=== PATIENT | female | born 1935 | race Caucasian/White ===

== ENCOUNTER 2017-01-23 07:39 | Emergency (ER) | payer MEDICARE ==
[2017-01-23] MEDS ORDERED: Aspirin Low Dose CHEW TAB* 81 MG PO ONE (08:54)
--- NOTE | 2017-01-23 09:20 | RAD ---
INDICATION: Cough, nocturnal dyspnea. COMPARISON: Comparison is made with a prior chest x-ray study from August 29, 2015. TECHNIQUE: A portable view of the chest was obtained. FINDINGS: There is a multilead transvenous pacemaker defibrillator present. The heart is within normal limits in size. The lungs are clear. No pleural effusion is seen. IMPRESSION: NO EVIDENCE FOR ACUTE DISEASE.
[2017-01-23] MEDS ORDERED: methylPREDNISolone SOD SUCC* 125 MG 2 ML VIAL IV ONE (09:52)
[2017-01-23] MEDS ORDERED: Albuterol/Ipratropium NEB.SOL* Albuterol 2.5 MG/Ipratropium 0.5 MG 3 ML INH ONE (09:52)
[2017-01-23 10:47] LABS: Hematocrit 39 % (35-47); Hemoglobin 13.2 g/dl (12.0-16.0); Mean Corpuscular HGB Conc 34 g/dl (31-36); Mean Corpuscular Hemoglobin 32 pg (27-31); Mean Corpuscular Volume 93 fL (80-97); Mean Platelet Volume 9 um3 (7.4-10.4); Red Blood Count 4.18 10^6/ul (4.0-5.4); Red Cell Distribution Width 13 % (10.5-15); White Blood Count 6.6 10^3/ul (3.5-10.8)
[2017-01-23 11:06] LABS: Calcium 9.9 mg/dL (8.6-10.3); EGFR African American 128.6 (>60); Globulin 3.2 g/dL (2-4); Potassium 3.9 mmol/L (3.5-5.0); Total Bilirubin 0.4 mg/dL (0.2-1.0); Total Protein 7.2 g/dL (6.4-8.9)
[2017-01-23 11:07] LABS: Troponin I 0.01 ng/mL (<0.04)
[2017-01-23 12:00] VITALS: BP 137/58
--- NOTE | 2017-02-02 17:56 | ED ---
axel Tee Timothy, scribed for Morris Calvert MD on 01/23/17 at 0829 . Respiratory - HPI Summary HPI Summary: Leeann Mcknight is an 81 yo female presenting to [facility] with cough for the past 2 weeks, worse at night and when she lays down. She also c/o fever on 01/21/17, at which point she saw her PCP who Dx her with bronchitis and gave her amoxicillin. She also has some nasal discharge. She is not in any current pain. She also has some cough-realted CP. 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 - History of Current Complaint Stated Complaint: COUGH, Time Seen by Provider: 01/23/17 09:49 Hx Obtained From: Patient Onset/Duration: Gradual Onset, Lasting Weeks, Still Present Timing: Constant Initial Severity: Moderate Current Severity: Moderate Pain Intensity: 0 Character: Cough (Nonproductive) Sputum Amount: None Aggravating Factor(s): Other - supine position Alleviating Factor(s): Upright Position Associated Signs and Symptoms: Fever, Chest Pain with Cough - Allergy/Home Medications Allergies/Adverse Reactions: Allergies Allergy/AdvReac Type Severity Reaction Status Date / Time Adhesive Tape Allergy Blisters Verified 01/23/17 07:44 Sulfa Drugs Allergy Hives Verified 01/23/17 07:44 PMH/Surg Hx/FS Hx/Imm Hx Endocrine/Hematology History: Reports: Hx Thyroid Disease - HX OF GRAVES- HYPOTHYROID Cardiovascular History: Reports: Hx Pacemaker/ICD, Other Cardiovascular Problems /Disorders - HX OF PAROXYSMAL VENTRICULAR TACHYCARDIA X 1; HX OF BRADYCARDIA Denies: Hx Congestive Heart Failure History: Reports: Other Problems/Disorders - HISTORY OF BLADDER INFECTIONS IN THE PAST- Musculoskeletal History: Reports: Hx Arthritis Denies: Hx Rheumatoid Arthritis, Hx Scoliosis Sensory History: Reports: Hx Cataracts - HX OF, Hx Contacts or Glasses - READING GLASSES, Hx Hearing Aid - BILATERAL Opthamlomology History: Reports: Hx Cataracts - HX OF, Hx Contacts or Glasses - READING GLASSES Neurological History: Reports: Hx Seizures - HX OF- WHILE ON ELAVIL- IN 1977 Denies: Hx Headaches, Other Neuro Impairments/Disorders - Surgical History Surgery Procedure, Year, and Place: [id number]. 1993-LEFT FOOT SURGERY-[facility]. 1994-CARPAL TUNNEL RELEASE BILATERAL. BREAST BIOPSIES. 5 YEARS- VARICOSE VEIN SURGERY- RIGHT LEG. 2006--ICD- [facility]. TONSILLECTOMY- AT AGE 20 Hx Anesthesia Reactions: No - Immunization History Date of Tetanus Vaccine: up to date per pt Infectious Disease History: No Infectious Disease History: Denies: Traveled Outside the [place] in Last 30 Days - Family History Known Family History: Positive: Cardiac Disease, Diabetes, Other - strokes, MS - Social History Alcohol Use: Occasionally Substance Use Type: Reports: None Smoking Status (MU): Former Smoker Review of Systems Positive: Fever Eyes: Negative Positive: Nasal Discharge. Negative: Sore Throat Positive: Chest Pain - secondary to cough Positive: Cough. Negative: Shortness Of Breath Gastrointestinal: Negative Negative: Abdominal Pain, Vomiting, Nausea Genitourinary: Negative Negative: dysuria, hematuria Musculoskeletal: Negative Negative: Edema - legs Skin: Negative Negative: Rash Neurological: Negative Psychological: Normal All Other Systems Reviewed And Are Negative: Yes Physical Exam - Summary Physical Exam Summary: Constitutional: Well-developed, Well-nourished, Alert. (-) Distressed Skin: Warm, Dry HENT: Normocephalic; Atraumatic Eyes: Conjunctiva normal Neck: Musculoskeletal ROM normal neck. (-) JVD, (-) Stridor, (-) Tracheal deviation Cardio: Rhythm regular, rate normal, Heart sounds normal; Intact distal pulses; The pedal pulses are 2+ and symmetric. Radial pulses are 2+ and symmetric. (-) Murmur Pulmonary/Chest wall: Effort normal. (-) Respiratory distress, (-) Wheezes, (-) Rales Abd: Soft, (-) Tenderness, (-) Distension, (-) Guarding, (-) Rebound Musculoskeletal: (-) Edema Lymph: (-) Cervical adenopathy Neuro: Alert, Oriented x3 Psych: Mood and affect Normal Triage Information Reviewed: Yes Vital Signs On Initial Exam: Initial Vitals Temp Pulse Resp BP Pulse Ox 97.9 F 65 20 123/57 99 01/23/17 07:44 01/23/17 07:44 01/23/17 07:44 01/23/17 07:44 01/23/17 07:44 Vital Signs Reviewed: Yes Diagnostics - Vital Signs Vital Signs Temp Pulse Resp BP Pulse Ox 01/23/17 07:44 97.9 F 65 20 123/57 99 - Laboratory Result Diagrams: 01/23/17 10:30 01/23/17 10:30 Lab Statement: Any lab studies that have been ordered have been reviewed, and results considered in the medical decision making process. - Radiology CXR Xray Interpretation: No Acute Changes - IMPRESSION: NO EVIDENCE FOR ACUTE DISEASE. Radiology Interpretation Completed By: Radiologist - EKG 0900 Cardiac Rate: NL - 65 BPM EKG Interpretation: Atrial-paced rhythm at 65 BPM. No indication for STEMI. Re-Evaluation - Re-Evaluation First Eval Re-Evaluation Time: 11:21 Change: Improved Comment: Informed Pt of results of lab work and imaging studies. Disposition - Course Assessment/Plan: Leeann Mcknight is an 81 yo female presenting to [facility] with cough for the past two weeks, and a Dx of bronchitis from her PCP. After negative CXR, normal EKG, and clinical examination and review of her lab work, she will be discharged home with bronchitis and appropriate instructions. - Diagnoses Provider Diagnoses: Bronchitis Discharge - Discharge Plan Condition: Stable Disposition: HOME Patient Education Materials: Acute Bronchitis (ED) Referrals: Suman Kong MD [Primary Care Provider] - 2 Days Additional Instructions: Please follow up with your primary care physician regarding your visit to the emergency department. Return to the emergency department with any new or recurring symptoms. The documentation as recorded by the axel de Timothy accurately reflects the service I personally performed and the decisions made by me, Morris Calvert MD.
== END 2017-01-23 11:30 | disposition home or self-care (01) ==
LOC: ED 07:39
DX: J40 Bronchitis, not specified as acute or chronic (principal); R07.9 Chest pain, unspecified; R50.9 Fever, unspecified; R05 Cough
CPT/HCPCS: 36415; 71010; 80053; 83605; 83880; 84484; 85025; 87040; 87502; 93005; 94640; 96374; 99283; A9270-GY; J2930

== ENCOUNTER 2017-09-16 01:19 | Emergency (ER) | payer MEDICARE ==
[2017-09-16 02:05] LABS: Hematocrit 39 % (35-47); Hemoglobin 13.2 g/dl (12.0-16.0); Mean Corpuscular HGB Conc 34 g/dl (31-36); Mean Corpuscular Hemoglobin 33 pg (27-31); Mean Corpuscular Volume 96 fL (80-97); Mean Platelet Volume 9 um3 (7.4-10.4); Red Blood Count 4.05 10^6/ul (4.0-5.4); Red Cell Distribution Width 13 % (10.5-15); White Blood Count 5.8 10^3/ul (3.5-10.8)
[2017-09-16 02:12] LABS: BUN/Creatinine Ratio 23.3 (8-20); Calcium 9.4 mg/dL (8.6-10.3); EGFR African American 98.4 (>60); EGFR Non-African American 76.5 (>60); Globulin 2.4 g/dL (2-4); Potassium 3.9 mmol/L (3.5-5.0); Total Bilirubin 0.3 mg/dL (0.2-1.0); Total Protein 6.4 g/dL (6.4-8.9)
[2017-09-16 02:26] LABS: TSH (Thyroid Stimulating Horm) 21.03 mcIU/mL (0.34-5.60)
[2017-09-16 05:37] LABS: Urine Bilirubin Negative (Negative); Urine Glucose Negative (Negative); Urine Nitrite Negative (Negative)
--- NOTE | 2017-09-16 06:23 | ED ---
Justin Tee Rebecca, scribed for Rodrigo London on 09/16/17 at 0130 . Complex/Multi-Sys Presentation - HPI Summary HPI Summary: Pt is an 82 y/o F who presents to ED c/o L shoulder and upper arm pain with WAY and nausea. Sx have been present for multiple days, worsening upon going to bed. Associated pain is currently moderate, ranked 7/10. Additionally c/o palpitations characterized as fluttering and SOB. Denies CP. PSHx pacemaker implantation for bradycardia and arrhythmia. - History Of Current Complaint Chief Complaint: EDChestPainROMI Time Seen by Provider: 09/16/17 01:20 Hx Obtained From: Patient Onset/Duration: Lasting Days, Still Present Severity Currently: Moderate - 7/10 Location: Pain At: - Left shoulder and upper arm Aggravating Factor(s): Nothing Alleviating Factor(s): Nothing Associated Signs And Symptoms: Positive: Headache, SOB, Palpitations, Nausea. Negative: Chest Pain - Allergies/Home Medications Allergies/Adverse Reactions: Allergies Allergy/AdvReac Type Severity Reaction Status Date / Time Adhesive Tape Allergy Blisters Verified 01/23/17 07:44 Sulfa Drugs Allergy Hives Verified 01/23/17 07:44 PMH/Surg Hx/FS Hx/Imm Hx Endocrine/Hematology History: Reports: Hx Thyroid Disease - HX OF GRAVES- HYPOTHYROID Cardiovascular History: Reports: Hx Pacemaker/ICD, Other Cardiovascular Problems /Disorders - HX OF PAROXYSMAL VENTRICULAR TACHYCARDIA X 1; HX OF BRADYCARDIA Denies: Hx Congestive Heart Failure History: Reports: Other Problems/Disorders - HISTORY OF BLADDER INFECTIONS IN THE PAST- Musculoskeletal History: Reports: Hx Arthritis Denies: Hx Rheumatoid Arthritis, Hx Scoliosis Sensory History: Reports: Hx Cataracts - HX OF, Hx Contacts or Glasses - READING GLASSES, Hx Hearing Aid - BILATERAL Opthamlomology History: Reports: Hx Cataracts - HX OF, Hx Contacts or Glasses - READING GLASSES Neurological History: Reports: Hx Seizures - HX OF- WHILE ON ELAVIL- IN 1977 Denies: Hx Headaches, Other Neuro Impairments/Disorders - Cancer History Hx Chemotherapy: No Hx Radiation Therapy: No - Surgical History Surgery Procedure, Year, and Place: [id number]. 1993-LEFT FOOT SURGERY-[facility]. 1994-CARPAL TUNNEL RELEASE BILATERAL. BREAST BIOPSIES. 5 YEARS- VARICOSE VEIN SURGERY- RIGHT LEG. 2006--ICD- [facility]. TONSILLECTOMY- AT AGE 20 Hx Anesthesia Reactions: No - Immunization History Date of Tetanus Vaccine: up to date per pt Infectious Disease History: No Infectious Disease History: Denies: Traveled Outside the [place] in Last 30 Days - Family History Known Family History: Positive: Cardiac Disease, Diabetes, Other - strokes, MS - Social History Alcohol Use: Occasionally Substance Use Type: Reports: None Smoking Status (MU): Former Smoker Review of Systems Positive: Palpitations. Negative: Chest Pain Positive: Shortness Of Breath Positive: Nausea Positive: Other - L shoulder and upper arm pain Positive: Headache All Other Systems Reviewed And Are Negative: Yes Physical Exam - Summary Physical Exam Summary: Appearance: Well appearing, no pain distress Skin: warm, dry, reflects adequate perfusion Head/face: normal Eyes: EOMI, FILI ENT: normal Neck: supple, nontender Respiratory: CTA, breath sounds present Cardiovascular: RRR, pulses symmetrical, pacemaker in place Abdomen: nontender, soft Bowel: present Musculoskeletal: normal, strength/ROM intact Neuro: normal, sensory motor intact, A&Ox3 Triage Information Reviewed: Yes Vital Signs On Initial Exam: Initial Vitals Temp Pulse Resp BP Pulse Ox 97.1 F 65 18 138/61 97 09/16/17 01:20 09/16/17 01:20 09/16/17 01:20 09/16/17 01:20 09/16/17 01:20 Vital Signs Reviewed: Yes Diagnostics - Vital Signs Vital Signs Temp Pulse Resp BP Pulse Ox 09/16/17 01:20 97.1 F 65 18 138/61 97 - Laboratory Lab Results: Lab Results 09/16/17 09/16/17 09/16/17 Range/Units 01:45 01:45 01:45 WBC 5.8 (3.5-10.8) 10^3/ul RBC 4.05 (4.0-5.4) 10^6/ul Hgb 13.2 (12.0-16.0) g/dl Hct 39 (35-47) % MCV 96 (80-97) fL MCH 33 H (27-31) pg MCHC 34 (31-36) g/dl RDW 13 (10.5-15) % Plt Count 205 (150-450) 10^3/ul MPV 9 (7.4-10.4) um3 Neut % (Auto) 43.4 (38-83) % Lymph % (Auto) 37.8 (25-47) % Tyrrell % (Auto) 11.3 H (1-9) % Eos % (Auto) 6.0 (0-6) % Baso % (Auto) 1.5 (0-2) % Absolute Neuts (auto) 2.5 (1.5-7.7) 10^3/ul Absolute Lymphs (auto) 2.2 (1.0-4.8) 10^3/ul Absolute Monos (auto) 0.7 (0-0.8) 10^3/ul Absolute Eos (auto) 0.3 (0-0.6) 10^3/ul Absolute Basos (auto) 0.1 (0-0.2) 10^3/ul Absolute Nucleated RBC 0 10^3/ul Nucleated RBC % 0.1 INR (Anticoag Therapy) 0.75 L (0.89-1.11) APTT 18.2 L (26.0-36.3) seconds Sodium (133-145) mmol/L Potassium (3.5-5.0) mmol/L Chloride (101-111) mmol/L Carbon Dioxide (22-32) mmol/L Anion Gap (2-11) mmol/L BUN (6-24) mg/dL Creatinine (0.51-0.95) mg/dL Est GFR ( Amer) (>60) Est GFR (Non-Af Amer) (>60) BUN/Creatinine Ratio (8-20) Glucose (70-100) mg/dL Calcium (8.6-10.3) mg/dL Magnesium (1.9-2.7) mg/dL Total Bilirubin (0.2-1.0) mg/dL AST (13-39) U/L ALT (7-52) U/L Alkaline Phosphatase (34-104) U/L Troponin I (<0.04) ng/mL B-Natriuretic Peptide 103 H ( - 100) pg/mL Total Protein (6.4-8.9) g/dL Albumin (3.2-5.2) g/dL Globulin (2-4) g/dL Albumin/Globulin Ratio (1-3) TSH (0.34-5.60) mcIU/mL Urine Color Urine Appearance Urine pH (5-9) Ur Specific [place] (1.010-1.030) Urine Protein (Negative) Urine Ketones (Negative) Urine Blood (Negative) Urine Nitrate (Negative) Urine Bilirubin (Negative) Urine Urobilinogen (Negative) Ur Leukocyte Esterase (Negative) Urine Glucose (Negative) 09/16/17 09/16/17 09/16/17 Range/Units 01:45 05:12 05:25 WBC (3.5-10.8) 10^3/ul RBC (4.0-5.4) 10^6/ul Hgb (12.0-16.0) g/dl Hct (35-47) % MCV (80-97) fL MCH (27-31) pg MCHC (31-36) g/dl RDW (10.5-15) % Plt Count (150-450) 10^3/ul MPV (7.4-10.4) um3 Neut % (Auto) (38-83) % Lymph % (Auto) (25-47) % Tyrrell % (Auto) (1-9) % Eos % (Auto) (0-6) % Baso % (Auto) (0-2) % Absolute Neuts (auto) (1.5-7.7) 10^3/ul Absolute Lymphs (auto) (1.0-4.8) 10^3/ul Absolute Monos (auto) (0-0.8) 10^3/ul Absolute Eos (auto) (0-0.6) 10^3/ul Absolute Basos (auto) (0-0.2) 10^3/ul Absolute Nucleated RBC 10^3/ul Nucleated RBC % INR (Anticoag Therapy) (0.89-1.11) APTT (26.0-36.3) seconds Sodium 136 (133-145) mmol/L Potassium 3.9 (3.5-5.0) mmol/L Chloride 105 (101-111) mmol/L Carbon Dioxide 25 (22-32) mmol/L Anion Gap 6 (2-11) mmol/L BUN 17 (6-24) mg/dL Creatinine 0.73 (0.51-0.95) mg/dL Est GFR ( Amer) 98.4 (>60) Est GFR (Non-Af Amer) 76.5 (>60) BUN/Creatinine Ratio 23.3 H (8-20) Glucose 101 H (70-100) mg/dL Calcium 9.4 (8.6-10.3) mg/dL Magnesium 2.0 (1.9-2.7) mg/dL Total Bilirubin 0.30 (0.2-1.0) mg/dL AST 24 (13-39) U/L ALT 16 (7-52) U/L Alkaline Phosphatase 58 (34-104) U/L Troponin I 0.00 0.00 (<0.04) ng/mL B-Natriuretic Peptide ( - 100) pg/mL Total Protein 6.4 (6.4-8.9) g/dL Albumin 4.0 (3.2-5.2) g/dL Globulin 2.4 (2-4) g/dL Albumin/Globulin Ratio 1.7 (1-3) TSH 21.03 H (0.34-5.60) mcIU/mL Urine Color Straw Urine Appearance Clear Urine pH 5.0 (5-9) Ur Specific [place] 1.004 L (1.010-1.030) Urine Protein Negative (Negative) Urine Ketones Negative (Negative) Urine Blood Negative (Negative) Urine Nitrate Negative (Negative) Urine Bilirubin Negative (Negative) Urine Urobilinogen Negative (Negative) Ur Leukocyte Esterase Negative (Negative) Urine Glucose Negative (Negative) Result Diagrams: 09/16/17 01:45 09/16/17 01:45 Lab Statement: Any lab studies that have been ordered have been reviewed, and results considered in the medical decision making process. - Radiology Shoulder XR Xray Interpretation: No Acute Changes Radiology Interpretation Completed By: ED Physician CXR Xray Interpretation: No Acute Changes Radiology Interpretation Completed By: ED Physician - EKG 0140 Cardiac Rate: NL - 65 bpm EKG Rhythm: Sinus Rhythm EKG Interpretation: No acute changes Complex Multi-Symp Course/Dx Assessment/Plan: Pt is an 82 y/o F who presents to ED c/o L shoulder and upper arm pain with WAY and nausea. Sx have been present for multiple days, worsening upon going to bed. Associated pain is currently moderate, ranked 7/10. Additionally c/o palpitations characterized as fluttering and SOB. Denies CP. PSHx pacemaker implantation for bradycardia and arrhythmia. CXR and Abd XR reveal no acute findings. EKG is sinus rhythm with no acute changes. UA negative for UTI. Initial yna drepeta troponin are 0.00. Pt will be D/C to home with Dx of palpitations and shoulder pain. She understands and agrees. Allergies noted. - Diagnoses Differential Diagnoses/HQI/PQRI: Cardiac Ischemia, Other - palpitations, lf shoulder pain Provider Diagnoses: Palpitations, Left shoulder pain Discharge - Discharge Plan Condition: Stable Disposition: HOME Patient Education Materials: Palpitations (ED), Shoulder Pain (ED) Referrals: Suman Kong MD [Primary Care Provider] - 3 Days The documentation as recorded by the Justin de Rebecca accurately reflects the service I personally performed and the decisions made by , Rodrigo London.
[2017-09-16 06:30] VITALS: BP 116/72
--- NOTE | 2017-09-16 08:00 | RAD ---
HISTORY: Chest pain COMPARISONS: August 29, 2015 VIEWS: 3: frontal dual-energy view of the chest FINDINGS: CARDIOMEDIASTINAL SILHOUETTE: The cardiomediastinal silhouette is normal. MAMIE: The mamie are normal. PLEURA: The costophrenic angles are sharp. No pleural abnormalities are noted. LUNG PARENCHYMA: There is minimal linear opacification of the left lung base ABDOMEN: The upper abdomen is clear. There is no subphrenic gas. BONES AND SOFT TISSUES: Degenerative changes are noted OTHER: A left-sided AICD pacemaker is noted IMPRESSION: MINIMAL LINEAR ATELECTASIS VERSUS PLEUROPARENCHYMAL SCARRING OF THE LEFT LUNG BASE
--- NOTE | 2017-09-16 08:02 | RAD ---
INDICATION: Left shoulder pain COMPARISON: None. TECHNIQUE: 4 views of the left shoulder were obtained. FINDINGS: The adequately corticated bones are in normal alignment. Degenerative changes of the left shoulder include mild sclerotic change of the articulating surfaces and osteophyte formation along the inferior margin the glenohumeral joint. There is faint density overlying the superior lateral margin of the humeral head at the expected insertion site of the supraspinatus tendon. No fracture, dislocation or focal bony abnormality is seen. IMPRESSION: MILD DEGENERATIVE CHANGES OF THE LEFT SHOULDER INCLUDING POTENTIAL CALCIFIC TENDINITIS. If the patient's symptoms persist, follow-up imaging is recommended.
== END 2017-09-16 06:30 | disposition home or self-care (01) ==
LOC: ED 01:19
DX: R00.2 Palpitations (principal); M25.512 Pain in left shoulder; R51 Headache; R06.02 Shortness of breath; R11.0 Nausea; Z87.891 Personal history of nicotine dependence
CPT/HCPCS: 36415; 71010; 80053; 81003; 83735; 83880; 84443; 84484; 85025; 85610; 85730; 93005; 99283

== ENCOUNTER 2019-01-05 23:46 | Emergency (ER) | payer MEDICARE ==
[2019-01-06 02:04] LABS: Hematocrit 40 % (35-47); Hemoglobin 13.1 g/dl (12.0-16.0); Mean Corpuscular HGB Conc 33 g/dl (31-36); Mean Corpuscular Hemoglobin 32 pg (27-31); Mean Corpuscular Volume 96 fL (80-97); Platelet Count 234 10^3/ul (150-450); Red Blood Count 4.12 10^6/ul (4.00-5.40); Red Cell Distribution Width 13 % (10.5-15); White Blood Count 5.9 10^3/ul (3.5-10.8)
[2019-01-06 02:11] LABS: Activated Partial Thrombo Time 31.3 seconds (26.0-36.3); INR 0.83 (0.77-1.02)
[2019-01-06 02:13] LABS: ABS Basophils 0 10^3/ul (0-0.2); ABS Eosinophils 0.3 10^3/ul (0-0.6); ABS Monocytes 0.5 10^3/ul (0-0.8); ABS Neutrophils 3.1 10^3/ul (1.5-7.7); ABS Nucleated RBC 0 10^3/ul; Lymphocyte % 33.2 %; Nucleated Red Blood Cells % 0.1
[2019-01-06 02:20] LABS: Albumin 4.2 g/dL (3.2-5.2); Albumin/Globulin Ratio 1.7 (1-3); BUN/Creatinine Ratio 31.9 (8-20); Calcium 10.5 mg/dL (8.6-10.3); EGFR African American 93.8 (>60); EGFR Non-African American 77.5 (>60); Globulin 2.5 g/dL (2-4); Magnesium 2.2 mg/dL (1.9-2.7); Potassium 4.4 mmol/L (3.5-5.0); Total Bilirubin 0.4 mg/dL (0.2-1.0); Total Protein 6.7 g/dL (6.4-8.9)
[2019-01-06] MEDS ORDERED: Iohexol 350* (CONTRAST) 500 ML MDV IV ONE (02:35)
[2019-01-06] MEDS ORDERED: Aspirin TAB* 325 MG PO ONE (05:09)
--- NOTE | 2019-01-06 05:14 | ED ---
Neurological HPI - HPI Summary HPI Summary: Patient is a 83 y/o F presenting to ED with complaints of a ten minute episode of double vision at 2200 on 01/06/19. She states that her vision was fine if she covered one eye. Patient was watching TV when Sx onset. She reports two previous similar episodes 5-6 weeks ago that only lasted seconds. Patient reports Sx have resolved at this time. She denies HAs, impaired speech, numbness and weakness. Patient does note some dizziness yesterday. She is on levothyroxine, not on ASA currently. PMHx of arrhythmia, pacemaker sine 2006. On triage, pain is denied, nothing is noted to aggravate/alleviate Sx. Home medications and allergies are reviewed. - History of Current Complaint Chief Complaint: EDGeneral Stated Complaint: VISION ISSUES Time Seen by Provider: 01/06/19 00:34 Hx Obtained From: Patient Onset/Duration: Started hours ago - onset 2200, Resolved Timing: Intermittent Episodes Lasting: - 10 minutes Current Severity: None - pain denied Pain Intensity: 0 Pain Scale Used: 0-10 Numeric - 0/10 Character: Dizzy, Visual Changes - double vision Aggravating: Nothing Alleviating: Nothing Associated Signs and Symptoms: Positive: Visual Changes, Dizziness. Negative: Headache, Weakness, Impaired Speech, Numbness - Allergy/Home Medications Allergies/Adverse Reactions: Allergies Allergy/AdvReac Type Severity Reaction Status Date / Time Adhesive Tape Allergy Blisters Verified 01/05/19 23:53 MS Sulfa Drugs [Sulfa Drugs] Allergy Hives Verified 01/05/19 23:53 PMH/Surg Hx/FS Hx/Imm Hx Endocrine/Hematology History: Reports: Hx Thyroid Disease - HX OF GRAVES- HYPOTHYROID Denies: Hx Diabetes Cardiovascular History: Reports: Hx Pacemaker/ICD, Other Cardiovascular Problems /Disorders - HX OF PAROXYSMAL VENTRICULAR TACHYCARDIA X 1; HX OF BRADYCARDIA Denies: Hx Congestive Heart Failure, Hx Hypertension History: Reports: Other Problems/Disorders - HISTORY OF BLADDER INFECTIONS IN THE PAST- Denies: Hx Renal Disease Musculoskeletal History: Reports: Hx Arthritis Denies: Hx Rheumatoid Arthritis, Hx Scoliosis Sensory History: Reports: Hx Cataracts - HX OF, Hx Contacts or Glasses - READING GLASSES, Hx Hearing Aid - BILATERAL Opthamlomology History: Reports: Hx Cataracts - HX OF, Hx Contacts or Glasses - READING GLASSES Neurological History: Reports: Hx Seizures - HX OF- WHILE ON [facility]VIL- IN 1977 Denies: Hx Headaches, Other Neuro Impairments/Disorders - Cancer History Hx Chemotherapy: No Hx Radiation Therapy: No - Surgical History Surgery Procedure, Year, and Place: [id number]. 1993-LEFT FOOT SURGERY-[facility]. 1994-CARPAL TUNNEL RELEASE BILATERAL. BREAST BIOPSIES. 5 YEARS- VARICOSE VEIN SURGERY- RIGHT LEG. 2006--ICD- [facility]. TONSILLECTOMY- AT AGE 20 Hx Anesthesia Reactions: No - Immunization History Date of Tetanus Vaccine: up to date per pt Infectious Disease History: No Infectious Disease History: Denies: Traveled Outside the [place] in Last 30 Days - Family History Known Family History: Positive: Cardiac Disease, Diabetes, Other - strokes, MS - Social History Alcohol Use: Occasionally Alcohol Amount: wine Substance Use Type: Reports: None Smoking Status (MU): Former Smoker Review of Systems Eyes: Other - POSITIVE - DOUBLE VISION, SINCE RESOLVED Neurological: Other - POSITIVE - DIZZINESS, SINCE RESOLVED Negative: Headache, Weakness, Numbness, Slurred Speech All Other Systems Reviewed And Are Negative: Yes Physical Exam - Summary Physical Exam Summary: VITAL SIGNS: Reviewed. GENERAL: Patient is a well-developed and nourished female who is lying comfortable in the stretcher. Patient is not in any acute respiratory distress. HEAD AND FACE: No signs of trauma. No ecchymosis, hematomas or skull depressions. No sinus tenderness. EYES: PERRLA, EOMI x 2, No injected conjunctiva, no nystagmus. EARS: Hearing grossly intact. Ear canals and tympanic membranes are within normal limits. MOUTH: Oropharynx within normal limits. NECK: Supple, trachea is midline, no adenopathy, no JVD, no carotid bruit, no c- spine tenderness, neck with full ROM. CHEST: Symmetric, no tenderness at palpation LUNGS: Clear to auscultation bilaterally. No wheezing or crackles. CVS: Regular rate and rhythm, S1 and S2 present, no murmurs or gallops appreciated. ABDOMEN: Soft, non-tender. No signs of distention. No rebound no guarding, and no masses palpated. Bowel sounds are normal. EXTREMITIES: FROM in all major joints, no edema, no cyanosis or clubbing. NEURO: Alert and oriented x 3. No acute neurological deficits. Speech is normal and follows commands. GCS 15. SKIN: Dry and warm Triage Information Reviewed: Yes Vital Signs On Initial Exam: Initial Vitals Temp Pulse Resp BP Pulse Ox 97.6 F 66 16 181/73 96 01/05/19 23:49 01/05/19 23:49 01/05/19 23:49 01/05/19 23:49 01/05/19 23:49 Vital Signs Reviewed: Yes Diagnostics - Vital Signs Vital Signs Temp Pulse Resp BP Pulse Ox 01/06/19 03:46 65 174/73 97 01/06/19 03:00 65 97 01/06/19 02:17 69 154/49 94 01/06/19 02:00 68 95 01/06/19 01:47 65 162/73 96 01/06/19 01:16 66 150/78 96 01/06/19 01:00 65 94 01/06/19 00:47 66 144/66 96 01/06/19 00:17 70 143/115 97 01/05/19 23:49 97.6 F 66 16 181/73 96 - Laboratory Lab Results: Lab Results 01/06/19 01/06/19 01/06/19 Range/Units 01:54 01:54 01:54 WBC 5.9 (3.5-10.8) 10^3/ul RBC 4.12 (4.00-5.40) 10^6/ul Hgb 13.1 (12.0-16.0) g/dl Hct 40 (35-47) % MCV 96 (80-97) fL MCH 32 H (27-31) pg MCHC 33 (31-36) g/dl RDW 13 (10.5-15) % Plt Count 234 (150-450) 10^3/ul MPV 9.0 (7.4-10.4) fL Neut % (Auto) 52.1 % Lymph % (Auto) 33.2 % [place] % (Auto) 9.3 % Eos % (Auto) 5.0 % Baso % (Auto) 0.4 % Absolute Neuts (auto) 3.1 (1.5-7.7) 10^3/ul Absolute Lymphs (auto) 2.0 (1.0-4.8) 10^3/ul Absolute Monos (auto) 0.5 (0-0.8) 10^3/ul Absolute Eos (auto) 0.3 (0-0.6) 10^3/ul Absolute Basos (auto) 0 (0-0.2) 10^3/ul Absolute Nucleated RBC 0 10^3/ul Nucleated RBC % 0.1 INR (Anticoag Therapy) 0.83 (0.77-1.02) APTT 31.3 (26.0-36.3) seconds Sodium 138 (135-145) mmol/L Potassium 4.4 (3.5-5.0) mmol/L Chloride 105 (101-111) mmol/L Carbon Dioxide 28 (22-32) mmol/L Anion Gap 5 (2-11) mmol/L BUN 23 (6-24) mg/dL Creatinine 0.72 (0.51-0.95) mg/dL Est GFR ( Amer) 93.8 (>60) Est GFR (Non-Af Amer) 77.5 (>60) BUN/Creatinine Ratio 31.9 H (8-20) Glucose 97 (70-100) mg/dL Lactic Acid (0.5-2.0) mmol/L Calcium 10.5 H (8.6-10.3) mg/dL Magnesium 2.2 (1.9-2.7) mg/dL Total Bilirubin 0.40 (0.2-1.0) mg/dL AST 18 (13-39) U/L ALT 15 (7-52) U/L Alkaline Phosphatase 64 (34-104) U/L Troponin I 0.00 (<0.04) ng/mL Total Protein 6.7 (6.4-8.9) g/dL Albumin 4.2 (3.2-5.2) g/dL Globulin 2.5 (2-4) g/dL Albumin/Globulin Ratio 1.7 (1-3) 01/06/19 Range/Units 01:54 WBC (3.5-10.8) 10^3/ul RBC (4.00-5.40) 10^6/ul Hgb (12.0-16.0) g/dl Hct (35-47) % MCV (80-97) fL MCH (27-31) pg MCHC (31-36) g/dl RDW (10.5-15) % Plt Count (150-450) 10^3/ul MPV (7.4-10.4) fL Neut % (Auto) % Lymph % (Auto) % [place] % (Auto) % Eos % (Auto) % Baso % (Auto) % Absolute Neuts (auto) (1.5-7.7) 10^3/ul Absolute Lymphs (auto) (1.0-4.8) 10^3/ul Absolute Monos (auto) (0-0.8) 10^3/ul Absolute Eos (auto) (0-0.6) 10^3/ul Absolute Basos (auto) (0-0.2) 10^3/ul Absolute Nucleated RBC 10^3/ul Nucleated RBC % INR (Anticoag Therapy) (0.77-1.02) APTT (26.0-36.3) seconds Sodium (135-145) mmol/L Potassium (3.5-5.0) mmol/L Chloride (101-111) mmol/L Carbon Dioxide (22-32) mmol/L Anion Gap (2-11) mmol/L BUN (6-24) mg/dL Creatinine (0.51-0.95) mg/dL Est GFR ( Amer) (>60) Est GFR (Non-Af Amer) (>60) BUN/Creatinine Ratio (8-20) Glucose (70-100) mg/dL Lactic Acid 0.5 (0.5-2.0) mmol/L Calcium (8.6-10.3) mg/dL Magnesium (1.9-2.7) mg/dL Total Bilirubin (0.2-1.0) mg/dL AST (13-39) U/L ALT (7-52) U/L Alkaline Phosphatase (34-104) U/L Troponin I (<0.04) ng/mL Total Protein (6.4-8.9) g/dL Albumin (3.2-5.2) g/dL Globulin (2-4) g/dL Albumin/Globulin Ratio (1-3) Result Diagrams: 01/06/19 01:54 01/06/19 01:54 Lab Statement: Any lab studies that have been ordered have been reviewed, and results considered in the medical decision making process. - CT CTA HEAD/NECK CT Interpretation Completed By: Radiologist Summary of CT Findings: CTA HEAD IMPRESSION: No acute findings. THIS REPORT WAS REVIEWED BY ED PHYSICIAN. CTA NECK IMPRESSION: 1. No hemodynamically significant narrowing of the cervical carotid arteries. Both internal carotid arteries are tortuous with no hemodynamically significant. kinking. No evidence of a dissection. 2. The left vertebral artery shows focal areas of narrowing which in part is. related to severe degenerative changes of the facet joints. However no. occlusion is observed. This report was reviewed by ED physician. BRAIN CT Summary of CT Findings: BRAIN CT IMPRESSION: No acute findings. THIS REPORT WAS REVIEWED BY ED PHYSICIAN. - EKG 0222 Cardiac Rate: Other Rate - atrial paced rhythm with rate of 65 BPM Summary of EKG Findings: EKG showed atrial paced rhythm with rate of 65 BPM. Re-Evaluation - Re-Evaluation First Eval Re-Evaluation Time: 05:08 Comment: Patient states that she would like to go home, does not want admission. She states that she will follow up with PCP in the morning. At this time, patient remains asymptomatic. Course/Dx - Course Course Of Treatment: Patient is a 83 y/o F presenting to ED with complaints of a ten minute episode of double vision at 2200 on 01/06/19. She states that her vision was fine if she covered one eye. Patient was watching TV when Sx onset. She reports two previous similar episodes 5-6 weeks ago that only lasted seconds. Patient reports Sx have resolved at this time. She denies HAs, impaired speech, numbness and weakness. Patient does note some dizziness yesterday. She is on levothyroxine, not on ASA currently. PMHx of arrhythmia, pacemaker sine 2006. Physical exam is unremarkable. During ED course, patient was given 324 ASA mg PO. Labs showed MCH 32, BUN/creatinine ratio 31.9, calcium 10.5, lactic acid 0.5, trop 0. EKG showed atrial paced rhythm with rate of [address] IMPRESSION: No acute findings. CTA HEAD IMPRESSION: No acute findings. CTA NECK IMPRESSION: 1. No hemodynamically significant narrowing of the cervical carotid arteries. Both internal carotid arteries are tortuous with no hemodynamically significant. kinking. No evidence of a dissection. 2. The left vertebral artery shows focal areas of narrowing which in part is. related to severe degenerative changes of the facet joints. However no. occlusion is observed. Patient states that she would like to go home, does not want admission. She states that she will follow up with PCP in the morning. At this time, patient remains asymptomatic. Sx could be due to TIA, patient was advised to follow up with PCP and eye doctor, take full ASA daily. She is agreeable with this plan. - Diagnoses Provider Diagnoses: TIA (transient ischemic attack), Double vision Discharge - Sign-Out/Discharge Documenting (check all that apply): Patient Departure - discharge Patient Received Moderate/Deep Sedation with Procedure: No - NO PROCEDURES DONE - Discharge Plan Condition: Stable Disposition: HOME Patient Education Materials: Transient Ischemic Attack (ED), Diplopia (ED) Referrals: Roderick Peralta MD [Primary Care Provider] - 2 Days Uri Bui MD [Medical Doctor] - 2 Days Additional Instructions: RETURN TO EMERGENCY DEPARTMENT FOR ANY NEW OR WORSENING SYMPTOMS. FOLLOW UP WITH PRIMARY CARE PHYSICIAN AND EYE DOCTOR IN 1-2 DAYS. - Attestation Statements Document Initiated by Scribe: Yes Documenting Scribe: NITIN ROY Provider For Whom Scribe is Documenting (Include Credential): BRITTANY ALCANTAR MD Scribe Attestation: I, NITIN ROY , scribed for BRITTANY ALCANTAR MD on 01/06/19 at 0555. Status of Scribe Document: Ready
[2019-01-06] MEDS ORDERED: Aspirin 81 mg CHEW TAB* 81 MG TAB.CHEW ONE (05:16)
[2019-01-06] MEDS ORDERED: Aspirin 81 mg CHEW TAB* 81 MG TAB.CHEW PO ONE (05:20)
[2019-01-06 05:29] VITALS: BP 143/65
== END 2019-01-06 05:28 | disposition home or self-care (01) ==
LOC: ED 23:46
DX: G45.9 Transient cerebral ischemic attack, unspecified (principal); H53.2 Diplopia; R42 Dizziness and giddiness; Z88.2 Allergy status to sulfonamides; Z87.891 Personal history of nicotine dependence
CPT/HCPCS: 36415; 70450; 70496; 70498; 80053; 83605; 83735; 84484; 85025; 85610; 85730; 93005; 99283; A9270-GY; Q9967

== ENCOUNTER 2019-01-15 22:40 | Emergency (ER) | payer MEDICARE ==
--- NOTE | 2019-01-15 23:01 | ED ---
Dizziness - HPI Summary HPI Summary: This patient is a 83 year old female brought in by ambulance to [facility] with a chief complaint of vision problems, vertigo since approx. 2100 today. Patient states that she was sitting down watching TV when the symptoms occurred suddenly. Patient states that it wasnt quite double vision, but felt lights and lines in vision. Patient states that the episode lasted around 2 minutes and resolved, leaving her fatigued. Patient states that this has happened before , last Saturday, which presented itself as double vision. Patient was instructed to come to the ED if similar symptoms arise. Patient presents to the ED as she is experiencing chest tightness on top of the previous symptoms. The pain is rated 0/10 in severity. Symptoms aggravated by nothing. Symptoms alleviated by nothing. Patient additionally reports dizziness, lightheadedness, chest tightness. Patient denies headache, double vision, abd pain, nausea, vomiting. - History Of Current Complaint Stated Complaint: CHEST PAIN Time Seen by Provider: 01/15/19 22:51 Hx Obtained From: Patient Onset/Duration: Resolved, Suddenly Timing: Constant Severity Initially: Mild Severity Currently: None Character: Lightheaded, Dizzy Aggravating Factor(s): Nothing Alleviating Factor(s): Nothing Associated Signs And Symptoms: Positive: Negative - headache, double vision, abd pain, nausea, vomiting, Other: - dizziness, lightheadedness, chest tightness - Allergies/Home Medications Allergies/Adverse Reactions: Allergies Allergy/AdvReac Type Severity Reaction Status Date / Time Adhesive Tape Allergy Blisters Verified 01/05/19 23:53 MS Sulfa Drugs [Sulfa Drugs] Allergy Hives Verified 01/05/19 23:53 PMH/Surg Hx/FS Hx/Imm Hx Previously Healthy: No Endocrine/Hematology History: Reports: Hx Thyroid Disease - HX OF GRAVES- HYPOTHYROID Denies: Hx Diabetes Cardiovascular History: Reports: Hx Pacemaker/ICD, Other Cardiovascular Problems /Disorders - HX OF PAROXYSMAL VENTRICULAR TACHYCARDIA X 1; HX OF BRADYCARDIA Denies: Hx Congestive Heart Failure, Hx Hypertension History: Reports: Other Problems/Disorders - HISTORY OF BLADDER INFECTIONS IN THE PAST- Denies: Hx Renal Disease Musculoskeletal History: Reports: Hx Arthritis Denies: Hx Rheumatoid Arthritis, Hx Scoliosis Sensory History: Reports: Hx Cataracts - HX OF, Hx Contacts or Glasses - READING GLASSES, Hx Hearing Aid - BILATERAL Opthamlomology History: Reports: Hx Cataracts - HX OF, Hx Contacts or Glasses - READING GLASSES Neurological History: Reports: Hx Seizures - HX OF- WHILE ON [facility]- IN 1977 Denies: Hx Headaches, Other Neuro Impairments/Disorders - Cancer History Hx Chemotherapy: No Hx Radiation Therapy: No - Surgical History Surgery Procedure, Year, and Place: [id number]. 1993-LEFT FOOT SURGERY-[facility]. 1994-CARPAL TUNNEL RELEASE BILATERAL. BREAST BIOPSIES. 5 YEARS- VARICOSE VEIN SURGERY- RIGHT LEG. 2006--ICD- [facility]. TONSILLECTOMY- AT AGE 20 Hx Anesthesia Reactions: No - Immunization History Date of Tetanus Vaccine: up to date per pt - Family History Known Family History: Positive: Cardiac Disease, Diabetes, Other - strokes, MS - Social History Occupation: Retired Lives: Alone Alcohol Use: Occasionally Alcohol Amount: wine Hx Substance Use: No Substance Use Type: Reports: None Hx Tobacco Use: Yes Smoking Status (MU): Former Smoker Review of Systems Negative: Fever Positive: Other - lights and lines in vision Positive: Chest Pain - "chest tightness" Negative: Abdominal Pain, Vomiting, Nausea Neurological: Negative - double vision, Other - dizziness, lightheadedness Negative: Headache All Other Systems Reviewed And Are Negative: Yes Physical Exam - Summary Physical Exam Summary: Appearance: Well-appearing, Well-nourished, lying in bed comfortably Skin: Warm, dry, no obvious rash Eyes: sclera anicteric, no conjunctival pallor ENT: mucous membranes moist, pharynx appears normal Neck: Supple, nontender Respiratory: Clear to auscultation, no signs of respiratory distress Cardiovascular: Normal S1, S2. No murmurs. Normal distal pulses in tibial and radial bilaterally. Abdomen: Soft, nontender, normal active bowel sounds present Musculoskeletal: Normal, Strength/ROM Intact Neurological: A&Ox3, awake and alert, mentation is normal, speech is fluent and appropriate Psychiatric: affect is normal, does not appear anxious or depressed Triage Information Reviewed: Yes Vital Signs Reviewed: Yes Diagnostics - Laboratory Result Diagrams: 01/15/19 23:09 01/15/19 23:09 Lab Statement: Any lab studies that have been ordered have been reviewed, and results considered in the medical decision making process. - Radiology CXR Radiology Interpretation Completed By: ED Physician Summary of Radiographic Findings: No acute process. Pending official imaging report. 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 Dizzy Course/Dx - Course Course Of Treatment: This patient is a 83 year old female brought in by ambulance to [facility] with a chief complaint of vision problems, vertigo since approx. 2100 today. Patient states that she was sitting down watching TV when the symptoms occurred suddenly. Patient states that it wasnt quite double vision, but felt lights and lines in vision. Patient states that the episode lasted around 2 minutes and resolved, leaving her fatigued. Patient states that this has happened before, last Saturday, which presented itself as double vision. Patient was instructed to come to the ED if similar symptoms arise. Patient presents to the ED as she is experiencing chest tightness on top of the previous symptoms. The pain is rated 0/10 in severity. Symptoms aggravated by nothing. Symptoms alleviated by nothing. Patient additionally reports dizziness , lightheadedness, chest tightness. Patient denies headache, double vision, abd pain, nausea, vomiting. The physical exam was unremarkable. 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 CXR showed no acute process. Lab results obtained and are WNL. The patient will be discharged home. She is agreeable with this plan. - Diagnoses Provider Diagnoses: Chest pain Discharge - Sign-Out/Discharge Documenting (check all that apply): Patient Departure - DC Patient Received Moderate/Deep Sedation with Procedure: No - Discharge Plan Condition: Good Disposition: HOME Patient Education Materials: Chest Pain (ED) Referrals: Roderick Peralta MD [Primary Care Provider] - 1 Day Additional Instructions: Contact your doctor later today, as he will likely want to see you in the near future to see if you require further testing. - Billing Disposition and Condition Condition: GOOD Disposition: Home - Attestation Statements Document Initiated by Scribe: Yes Documenting Scribe: Slava Lira Provider For Whom Corona is Documenting (Include Credential): Brandon Mcnamara MD Scribe Attestation: Slava Tee, patibed for Brandon Mcnamara MD on 01/20/19 at 1850. Scribe Documentation Reviewed: Yes Provider Attestation: The documentation as recorded by the Slava de accurately reflects the service I personally performed and the decisions made by me, Brandon Mcnamara MD Status of Scribe Document: Viewed
[2019-01-15 23:24] LABS: ABS Basophils 0.1 10^3/ul (0-0.2); ABS Eosinophils 0.3 10^3/ul (0-0.6); ABS Lymphocytes 1.6 10^3/ul (1.0-4.8); ABS Monocytes 0.7 10^3/ul (0-0.8); ABS Neutrophils 6.1 10^3/ul (1.5-7.7); ABS Nucleated RBC 0 10^3/ul; Eosinophil % 3.5 %; Hematocrit 40 % (35-47); Hemoglobin 13.4 g/dl (12.0-16.0); Lymphocyte % 18.4 %; Mean Corpuscular HGB Conc 34 g/dl (31-36); Mean Corpuscular Hemoglobin 32 pg (27-31); Mean Corpuscular Volume 97 fL (80-97); Nucleated Red Blood Cells % 0.1; Platelet Count 246 10^3/ul (150-450); Red Blood Count 4.16 10^6/ul (4.00-5.40); Red Cell Distribution Width 13 % (10.5-15); White Blood Count 8.8 10^3/ul (3.5-10.8)
--- OUTSIDE RECORDS SUMMARY | 2019-01-15 23:34 | XMS REPORT | Continuity of Care Document ---
:1935 External Reference #:[id number] Author Name AshleySuleman almodovar Care Team Providers Name Role Phone Roderick Peralta MD Primary Care Physician Unavailable Payers Date Identification Numbers Payment Provider Subscriber Policy Number: [id number] [employer] Leeann Espinoza PayID: [id number] [address] [address] Attn: [place] [address] Advance Directives Description No Information Available Problems Date Description Provider Status Onset: 02/25/2008 Osteochondropathy Maria De Jesus Dent M.D.,FACP Onset: 02/25/2008 Paroxysmal ventricular tachycardia Maria De Jesus Dent M.D.,FACP Onset: 02/25/2008 Hypothyroidism Maria De Jesus Dent M.D.,FACP Onset: 08/11/2009 Hypothyroidism Maria De Jesus Dent M.D.,FACP Onset: 06/27/2012 Sinus node dysfunction Jayden Mann M.D. Active Onset: 04/29/2013 Mitral valve disorder Jayden Mann M.D. 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 Resolved: 12/23/2017 Family History Date Family Member(s) Observation Comments General heart trouble, diabetes, and cancer in immediate family Father due to CAD () - 60's Mother due to Cancer, Breast () First Brother Multiple Sclerosis (MS) Second Brother due to Motor Vehicle () - plane crash Accident Social History Type Date Description Comments Sex Unknown Marital Status Single Lives With Alone with three dogs Occupation Retired Clinical social service worker Tobacco Use Start: Unknown End: Former Cigarette Smoker Unknown Smoking Status Reviewed: 01/14/19 Former Cigarette Smoker ETOH Use Consumes 1 glass of wine per day Tobacco Use Start: Unknown End: Patient is a former Unknown smoker Exercise Type/Frequency Exercises regularly Exercise Type/Frequency Walks daily Allergies, Adverse Reactions, Alerts Date Description Reaction Status Severity Comments 04/11/2007 Sulfa Active hives 02/23/2010 Tape Active paper tape Medications Medication Date Status Form Strength Qnty SIG Indications Ordering Provider Blood Pressure 01/14 Active Misc 1unit take bp 1-2x Serenity S. Cuff /2018 s daily as verónica Parnell. N.P. Aspirin Adult 01/08 Active Tablets 81mg 1 by mouth I49.5 Jayden Low Dose /2016 DR every day Jie Mann M.D. Levoxyl 04/10 Active Tablets 112mcg 1 by mouth Arvin every day Caron Lambert M.D.,FACP Vitamin D 08/17 Active Capsules 400Unit 1 by mouth Jayden every day Jie (winter time Mackenzie, only) Mora Zyrtec 03/18 Active 10mg 30uni 1 qd prn 477.9 Arvin ghada Lambert M.D.,FACP Vitamin B12 Active Tablets 500mcg 1 po 2x week Unknown /0000 ER Tylenol 00 Active 650 1 to 2 every 8 Unknown /0000 hrs prn pain (rarely uses) Co Q10 Maximum Active Capsules 200mg 1 po daily Unknown Strength /0000 Xarelto 09/02 Hx Tablets 20mg 90tab 1 by mouth I49.5 Jayden /2014 s every day Jie Mann 01/08 Mora Levoxyl 08/17 Hx Tablets 125mcg 1 by mouth Arvin every day Cristiana Adkins M.D.,FACP 04/10 Doxycycline 09/07 Hx Tablets 100mg 14tab po bid 088.81 Arvin Monojerryate s Cristiana Adkins M.D.,FACP 06/13 Digoxin 06/21 Hx Tablets 0.25mg 30tab 1 po qd teddy Mann, 06/28 Mora /2009 Vitamin D 02/23 Hx Capsules 400Unit 60cap 1 po qd Cristiana Mcdonald M.D.,[facility] 06/13 Calcium 600-D 02/23 Hx Tablets 600-400mg 60tab 1 po bid -Unit Cristiana Mcdonald M.D.,[facility] 08/16 Voltaren Gel 02/23 Hx 1% 4Tube 2 gm topical r 715.04 s thumb bid prn Cristiana Adkins M.D.,[facility] 04/21 Cipro 05/10 Hx Tablets 500mg 20tab 1 po bid Cristiana Mcdonald M.D.,[facility] 08/11 Meclizine HCL 12/17 Hx Tablets 25mg 30tab 1 po tid prn 386.19 Cristiana Mcdonald M.D.,[facility] 03/16 Amoxicillin 08/09 Hx Tablets 875mg 20tab 1 tab po bid x 461.1 teddy 10 Charlotte Reardon - M.D. 10/04 Cefaclor 07/09 Hx Capsules 500mg 14cap PO bid 461.1 Cristiana Mcdonald M.D.,[facility] 07/09 Keflex 07/09 Hx Capsules 500mg 21cap 1 po tid 461.1 s x7days Cristiana Adkins M.D.,[facility] 10/04 Pyridium 07/07 Hx Tablets 100mg 12tab 1 Q 8 Hours s prn Cristiana Adkins M.D.,[facility] 12/03 Amoxicillin 06/10 Hx Tablets 500mg 40tab 2 tabs po bid 461.1 s for 10 days Cristiana Adkins M.D.,[facility] 07/09 Aspir-81 03/17 Hx Tablets 81mg 30tab [address] teddy Mann, 09/02 Mora /2014 Ciprofloxacin 06/16 Hx Tablets day 10, for Jayden HCL /2006 uti Jie Mann, 06/27 Mora Levoxyl 06/02 Hx Tablets 112mcg 90tab 1 PO qd Arvin /Cristiana John M.D.,FACP 08/17 Supplements 06/02 Hx Jayden /2006 Jie Mann, 06/13 M.DMariel Ibuprofen Hx Capsules 200mg 1 prn Unknown / - 12/03 Sudafed Hx Tablets 1 prn Unknown / ER 12HR - 01/07 Magnesium Hx Capsules 1 po qd - 08/16 Bone Strength Hx 2 po qd Unknown - 01/07 Miralax Hx Packet [id number] 1mon 17 gm qd prn Unknown - 04/29 Co Q-10 Hx Capsules 200mg 1 po qd Unknown - 04/10 Cephalexin Hx Capsules 500mg 1 Cap po tid x Brand, /0000 3 days Cristiana Trammell MD 08/16 Metoprolol Hx Tablets 25mg 90tab 1 by mouth Jayden Tartrate /0000 s every day Jie Mann, 10/14 M.DMariel /2015 Tumeric Hx 1 tablet daily Unknown - 01/07 Estrace Hx Cream 0.1mg/GM use one Unknown applicatorful - two times 12/23 Immunizations Description No Information Available Vital Signs Date Vital Result Comment 01/14/2019 11:03am Height 61 inches 5'1" Weight 139.06 lb without shoes Heart Rate 72 /min BP Systolic Sitting 138 mmHg right arm BP Diastolic Sitting 70 mmHg right arm BP Systolic Standing 162 mmHg right arm BP Diastolic Standing 74 mmHg right arm BMI (Body Mass Index) 26.3 kg/m2 Ejection Fraction 60-65% Echocardiogram 12/04/2017 06/09/2018 12:01pm Height 61 inches 5'1" Weight 132.00 lb Heart Rate 64 /min BP Systolic Sitting 110 mmHg Ra, reg BP Diastolic Sitting 62 mmHg Ra, reg BMI (Body Mass Index) 24.9 kg/m2 Ejection Fraction 60%-65% 12/04/17 echo 12/24/2017 11:14am Height 61 inches 5'1" Weight 136.50 lb with boots Heart Rate 68 /min BP Systolic Sitting 128 mmHg LA, reg cuff BP Diastolic Sitting 76 mmHg LA, reg cuff BMI (Body Mass Index) 25.8 kg/m2 Ejection Fraction 60%-65% echo 12/04/17 11/01/2017 1:50pm Height 61 inches 5'1" Weight 130.00 lb BP Systolic 114 mmHg BP Diastolic 66 mmHg Respiratory Rate 18 /min Pain Level 0 BMI (Body Mass Index) 24.6 kg/m2 10/02/2017 12:57pm Height 61 inches 5'1" Weight 134.75 lb with shoes Heart Rate 64 /min BP Systolic Sitting 132 mmHg LA reg cuff BP Diastolic Sitting 80 mmHg LA reg cuff BMI (Body Mass Index) 25.5 kg/m2 Ejection Fraction 60%-65% echo 09/21/16 07/05/2017 10:19am Height 61 inches 5'1" Weight 130.00 lb BP Systolic 118 mmHg BP Diastolic 70 mmHg Respiratory Rate 18 /min Pain Level 0 BMI (Body Mass Index) 24.6 kg/m2 05/03/2017 2:13pm Height 61 inches 5'1" Weight 130.00 lb Heart Rate 62 /min BP Systolic 134 mmHg BP Diastolic 74 mmHg Respiratory Rate 14 /min Body Temperature 97.5 F Pain Level 0 BMI (Body Mass Index) 24.6 kg/m2 01/08/2017 2:12pm Height 61 inches 5'1" Weight 133.50 lb w/o shoes Heart Rate 74 /min BP Systolic Sitting 134 mmHg LA reg cuff BP Diastolic Sitting 80 mmHg LA reg cuff BMI (Body Mass Index) 25.2 kg/m2 Ejection Fraction 60-65% Echo 09/20/16 09/11/2016 1:31pm Height 61 inches 5'1" Weight 133.75 lb with shoes Heart Rate 84 /min BP Systolic Sitting 108 mmHg LA reg cuff BP Diastolic Sitting 66 mmHg LA reg cuff BMI (Body Mass Index) 25.3 kg/m2 Ejection Fraction 55%-60% echo 04/28/15 02/08/2016 2:34pm Height 61 inches 5'1" Weight 130.00 lb Heart Rate 79 /min BP Systolic 107 mmHg BP Diastolic 64 mmHg BMI (Body Mass Index) 24.6 kg/m2 01/18/2016 1:51pm Height 61 inches 5'1" Weight 132.75 lb w/o shoes Heart Rate 80 /min BP Systolic Sitting 118 mmHg LA reg cuff BP Diastolic Sitting 70 mmHg LA reg cuff BMI (Body Mass Index) 25.1 kg/m2 Ejection Fraction 55-60 echo 04/28/15 09/02/2015 10:30am Height 61 inches 5'1" Weight 129.00 lb with out shoes Heart Rate 68 /min BP Systolic Sitting 122 mmHg LA reg cuff BP Diastolic Sitting 92 mmHg LA reg cuff BP Systolic Standing 118 mmHg LA reg cuff BP Diastolic Standing 86 mmHg LA reg cuff Respiratory Rate 17 /min BMI (Body Mass Index) 24.4 kg/m2 Ejection Fraction 55-60% date 04/28/15 ECHO 04/11/2015 10:47am Height 61 inches 5'1" Weight 131.75 lb Heart Rate 62 /min BP Systolic 128 mmHg LA reg BP Diastolic 88 mmHg LA reg BP Systolic Sitting 128 mmHg la repeat sit BP Diastolic Sitting 71 mmHg la repeat sit BMI (Body Mass Index) 24.9 kg/m2 Ejection Fraction 60-65% 09/29/12 ECHO 08/17/2014 3:45pm Height 61 inches 5'1" Weight 130.50 lb Heart Rate 68 /min BP Systolic Sitting 128 mmHg left, reg BP Diastolic Sitting 78 mmHg left, reg BMI (Body Mass Index) 24.7 kg/m2 09/04/2013 1:13pm Height 61 inches 5'1" Weight 132.00 lb with shoes Heart Rate 76 /min BP Systolic Sitting 120 mmHg R arm reg cuff BP Diastolic Sitting 70 mmHg R arm reg cuff BP Systolic Standing 122 mmHg R arm reg cuff BP Diastolic Standing 70 mmHg R arm reg cuff Respiratory Rate 17 /min BMI (Body Mass Index) 24.9 kg/m2 08/28/2013 2:41pm Height 61 inches 5'1" Weight 132.00 lb with shoes 3 lbs increase from last ov 08/21/13 Heart Rate 60 /min reg BP Systolic Sitting 124 mmHg R arm reg cuff BP Diastolic Sitting 60 mmHg R arm reg cuff BP Systolic Standing 122 mmHg R arm reg cuff BP Diastolic Standing 70 mmHg R arm reg cuff Respiratory Rate 16 /min BMI (Body Mass Index) 24.9 kg/m2 08/21/2013 3:18pm Height 61 inches 5'1" Weight 129.00 lb Heart Rate 64 /min BP Systolic Sitting 110 mmHg Ra reg cuff BP Diastolic Sitting 70 mmHg Ra reg cuff BP Systolic Standing 106 mmHg Ra BP Diastolic Standing 68 mmHg Ra Respiratory Rate 16 /min BMI (Body Mass Index) 24.4 kg/m2 04/29/2013 10:22am Height 61.5 inches 5'1.50" Weight 132.00 lb Heart Rate 81 /min BP Systolic 120 mmHg BP Diastolic 66 mmHg Respiratory Rate 16 /min BMI (Body Mass Index) 24.5 kg/m2 06/27/2012 9:53am Height 61.5 inches 5'1.50" Weight 129.00 lb Heart Rate 64 /min BP Systolic Sitting 120 mmHg BP Diastolic Sitting 70 mmHg BMI (Body Mass Index) 24.0 kg/m2 06/13/2011 9:48am Height 61.5 inches 5'1.50" Weight 131.00 lb Heart Rate 64 /min BP Systolic Sitting 110 mmHg BP Diastolic Sitting 68 mmHg BMI (Body Mass Index) 24.3 kg/m2 09/07/2010 10:40am Height 61.5 inches 5'1.50" Weight 130.00 lb Heart Rate 80 /min BP Systolic Sitting 120 mmHg BP Diastolic Sitting 74 mmHg BMI (Body Mass Index) 24.2 kg/m2 04/21/2010 11:37am Height 61.5 inches 5'1.50" Weight 134.00 lb Heart Rate 61 /min BP Systolic Sitting 116 mmHg L BP Diastolic Sitting 80 mmHg L BMI (Body Mass Index) 24.9 kg/m2 02/23/2010 10:52am Height 61.5 inches 5'1.50" Weight 133.75 lb Heart Rate 60 /min BP Systolic Sitting 122 mmHg BP Diastolic Sitting 76 mmHg Body Temperature 98.4 F BMI (Body Mass Index) 24.9 kg/m2 08/11/2009 10:05am Height 61.5 inches 5'1.50" Weight 129.50 lb Heart Rate 76 /min BP Systolic Sitting 106 mmHg BP Diastolic Sitting 70 mmHg BMI (Body Mass Index) 24.1 kg/m2 07/14/2009 1:36pm Height 62 inches 5'2" Weight 129.00 lb Heart Rate 72 /min BP Systolic Sitting 114 mmHg BP Diastolic Sitting 66 mmHg BMI (Body Mass Index) 23.6 kg/m2 05/10/2009 11:51am Height 62 inches 5'2" Weight 131.00 lb Heart Rate 64 /min BP Systolic Sitting 116 mmHg BP Diastolic Sitting 72 mmHg BMI (Body Mass Index) 24.0 kg/m2 03/16/2009 11:14am Height 62 inches 5'2" Weight 129.00 lb Heart Rate 64 /min BP Systolic Sitting 130 mmHg L BP Diastolic Sitting 84 mmHg L BMI (Body Mass Index) 23.6 kg/m2 12/17/2008 3:51pm Height 62 inches 5'2" Weight 131.00 lb Heart Rate 68 /min BP Systolic Sitting 110 mmHg BP Diastolic Sitting 60 mmHg BMI (Body Mass Index) 24.0 kg/m2 12/17/2008 3:49pm Height 62 inches 5'2" Weight 131.00 lb BMI (Body Mass Index) 24.0 kg/m2 12/03/2008 2:22pm Height 62 inches 5'2" Weight 131.00 lb Heart Rate 70 /min BP Systolic Sitting 134 mmHg BP Diastolic Sitting 86 mmHg BP Systolic Standing 124 mmHg BP Diastolic Standing 80 mmHg BMI (Body Mass Index) 24.0 kg/m2 10/04/2008 1:55pm Height 62 inches 5'2" Heart Rate 70 /min BP Systolic Sitting 114 mmHg BP Diastolic Sitting 90 mmHg 08/09/2008 11:34am Height 62 inches 5'2" Weight 133.00 lb Heart Rate 72 /min BP Systolic Sitting 120 mmHg BP Diastolic Sitting 62 mmHg BMI (Body Mass Index) 24.3 kg/m2 06/23/2008 11:21am Height 62 inches 5'2" Weight 134.00 lb Heart Rate 80 /min BP Systolic Sitting 122 mmHg BP Diastolic Sitting 74 mmHg BMI (Body Mass Index) 24.5 kg/m2 06/10/2008 11:45am Height 62 inches 5'2" Weight 125.00 lb Heart Rate 76 /min BP Systolic Sitting 126 mmHg BP Diastolic Sitting 76 mmHg Body Temperature 97.0 F BMI (Body Mass Index) 22.9 kg/m2 06/10/2008 11:45am Height 62 inches 5'2" 06/10/2008 11:38am Height 62 inches 5'2" Weight 138.00 lb Heart Rate 80 /min BP Systolic Sitting 122 mmHg BP Diastolic Sitting 70 mmHg BMI (Body Mass Index) 25.2 kg/m2 05/26/2008 9:47am Height 62 inches 5'2" Weight 138.00 lb Heart Rate 68 /min BP Systolic Sitting 112 mmHg BP Diastolic Standing 72 mmHg BMI (Body Mass Index) 25.2 kg/m2 05/11/2008 2:35pm Height 62 inches 5'2" Weight 143.00 lb Heart Rate 75 /min BP Systolic Sitting 130 mmHg BP Diastolic Sitting 80 mmHg BP Systolic Standing 116 mmHg BP Diastolic Standing 80 mmHg BMI (Body Mass Index) 26.2 kg/m2 03/18/2008 10:14am Height 62 inches 5'2" Weight 150.00 lb Heart Rate 76 /min BP Systolic Sitting 122 mmHg BP Diastolic Sitting 70 mmHg BMI (Body Mass Index) 27.4 kg/m2 02/25/2008 10:36am Height 62 inches 5'2" Weight 150.00 lb Heart Rate 74 /min BP Systolic Sitting 110 mmHg BP Diastolic Sitting 60 mmHg Respiratory Rate 20 /min Body Temperature 97.7 F BMI (Body Mass Index) 27.4 kg/m2 01/09/2008 3:50pm Height 62 inches 5'2" Weight 150.00 lb Heart Rate 90 /min BP Systolic Sitting 120 mmHg BP Diastolic Sitting 70 mmHg Respiratory Rate 16 /min BMI (Body Mass Index) 27.4 kg/m2 11/19/2007 2:59pm Height 62 inches 5'2" Weight 149.00 lb Heart Rate 84 /min BP Systolic Sitting 120 mmHg BP Diastolic Sitting 80 mmHg Respiratory Rate 16 /min BMI (Body Mass Index) 27.2 kg/m2 09/25/2007 9:27am Height 62 inches 5'2" Weight 148.00 lb Heart Rate 64 /min BP Systolic Sitting 130 mmHg L BP Diastolic Sitting 80 mmHg L BP Systolic Standing 142 mmHg L BP Diastolic Standing 90 mmHg L O2 % BldC Oximetry 97 % BMI (Body Mass Index) 27.1 kg/m2 08/15/2007 10:41am Height 62 inches 5'2" Weight 144.00 lb Heart Rate 84 /min BP Systolic Sitting 136 mmHg BP Diastolic Sitting 86 mmHg BP Systolic Standing 130 mmHg BP Diastolic Standing 84 mmHg BMI (Body Mass Index) 26.3 kg/m2 07/25/2007 9:36am Height 62 inches 5'2" Weight 145.00 lb Heart Rate 84 /min BP Systolic Sitting 150 mmHg R BP Diastolic Sitting 90 mmHg R BP Systolic Standing 142 mmHg R BP Diastolic Standing 90 mmHg R BMI (Body Mass Index) 26.5 kg/m2 06/27/2007 2:08pm Height 62 inches 5'2" Weight 144.00 lb Heart Rate 63 /min BP Systolic Sitting 120 mmHg R BP Diastolic Sitting 68 mmHg R O2 % BldC Oximetry 98 % BMI (Body Mass Index) 26.3 kg/m2 06/16/2007 2:21pm Height 62 inches 5'2" Weight 148.25 lb Heart Rate 48 /min BP Systolic Sitting 110 mmHg BP Diastolic Sitting 70 mmHg BP Systolic Standing 110 mmHg BP Diastolic Standing 70 mmHg BMI (Body Mass Index) 27.1 kg/m2 06/10/2007 11:10am Height 62 inches 5'2" Weight 146.00 lb Heart Rate 46 /min BP Systolic Sitting 130 mmHg BP Diastolic Sitting 70 mmHg BP Systolic Standing 150 mmHg BP Diastolic Standing 80 mmHg Respiratory Rate 16 /min Body Temperature 96.9 F BMI (Body Mass Index) 26.7 kg/m2 06/02/2007 11:08am Height 62 inches 5'2" Weight 146.00 lb Heart Rate 58 /min BP Systolic Sitting 110 mmHg BP Diastolic Sitting 80 mmHg Respiratory Rate 16 /min BMI (Body Mass Index) 26.7 kg/m2 Results Test Date Facility Test Result H/L Range Note Laboratory test 12/05/2018 [facility] Vitamin B12 655 pg/mL N 180-914 1 finding [address] [place] [address] [phone] Comp Metabolic 12/05/2018 [facility] Sodium 139 mmol/L N 135- 145 Panel [address] [place] [address] [phone] Potassium 4.5 mmol/L N 3.5-5.0 Chloride 105 mmol/L N 101-111 Co2 Carbon Dioxide 27 mmol/L N 22-32 Anion Gap 7 mmol/L N 2-11 Glucose 89 mg/dL N 70-100 Blood Urea Nitrogen 17 mg/dL N 6-24 Creatinine 0.79 mg/dL N 0.51-0.95 BUN/Creatinine Ratio 21.5 High 8-20 Calcium 10.3 mg/dL N 8.6-10.3 Total Protein 6.4 g/dL N 6.4-8.9 Albumin 4.1 g/dL N 3.2-5.2 Globulin 2.3 g/dL N 2-4 Albumin/Globulin Ratio 1.8 N 1-3 Total Bilirubin 0.60 mg/dL N 0.2-1.0 Alkaline Phosphatase 68 U/L N 34-104 Alt 14 U/L N 7-52 Ast 18 U/L N 13-39 Egfr Non- 69.7 >60 Egfr 84.3 >60 2 CBC Auto Diff 12/05/2018 [facility] White Blood 6.5 10^3/uL N 3.5-10.[address] [place] [address] [phone] Red Blood Count 4.32 10^6/uL N 4.00-5.40 Hemoglobin 13.9 g/dL N 12.0-16.0 Hematocrit 41 % N 35-47 Mean Corpuscular Volume 96 fL N 80-97 Mean Corpuscular Hemoglobin 32 pg High 27-31 Mean Corpuscular HGB Conc 34 g/dL N 31-36 Red Cell Distribution Width 13 % N 10.5-15 Platelet Count 277 10^3/uL N 150-450 Mean Platelet Volume 8.8 fL N 7.4-10.4 Abs Neutrophils 4.3 10^3/uL N 1.5-7.7 Abs Lymphocytes 1.5 10^3/uL N 1.0-4.8 Abs Monocytes 0.4 10^3/uL N 0-0.8 Abs Eosinophils 0.1 10^3/uL N 0-0.6 Abs Basophils 0.1 10^3/uL N 0-0.2 Abs Nucleated RBC 0 10^3/uL Granulocyte % 66.3 % Lymphocyte % 23.8 % Monocyte % 6.5 % Eosinophil % 2.0 % Basophil % 1.4 % Nucleated Red Blood Cells % 0 Order 09/20/2016 [facility] Echocardiogram <pending > [address] [place] [address] [phone] CBC Auto 02/06/2016 [facility] White Blood Count 4.7 10^3/uL N 3.5-[address] [place] [address] [phone] Red Blood Count 4.36 10^6/uL N 4.0-5.4 Hemoglobin 14.0 g/dL N 12.0-16.0 Hematocrit 42 % N 35-47 Mean Corpuscular Volume 96 fL N 80-97 Mean Corpuscular Hemoglobin 32 pg High 27-31 Mean Corpuscular HGB Conc 33 g/dL N 31-36 Red Cell Distribution Width 13 % N 10.5-15 Platelet Count 247 10^3/uL N 150-450 Mean Platelet Volume 9 um3 N 7.4-10.4 Abs Neutrophils 2.2 10^3/uL N 1.5-7.7 Abs Lymphocytes 1.7 10^3/uL N 1.0-4.8 Abs Monocytes 0.5 10^3/uL N 0-0.8 Abs Eosinophils 0.2 10^3/uL N 0-0.6 Abs Basophils 0.1 10^3/uL N 0-0.2 Abs Nucleated RBC 0 10^3/uL N Granulocyte % 47.4 % N 38-83 Lymphocyte % 35.6 % N 25-47 Monocyte % 9.7 % High 1-9 Eosinophil % 5.2 % N 0-6 Basophil % 2.1 % High 0-2 Nucleated Red Blood Cells % 0.1 N Lipid Panel - 02/06/2016 [facility] Creatine 27 U/L N 10-223 [address] Kinase(CK) [place] [address] [phone] Comp Metabolic 02/06/2016 [facility] Sodium 139 N 133-[address] mmol/[place] [address] [phone] Potassium 4.8 mmol/L N 3.5-5.0 Chloride 104 mmol/L N 101-111 Co2 Carbon Dioxide 30 mmol/L N 22-32 Anion Gap 5 mmol/L N 2-11 Glucose 95 mg/dL N 70-100 Blood Urea Nitrogen 17 mg/dL N 6-24 Creatinine 0.70 mg/dL N 0.51-0.95 BUN/Creatinine Ratio 24.3 High 8-20 Calcium 10.1 mg/dL N 8.6-10.3 Total Protein 6.7 g/dL N 6.4-8.9 Albumin 4.6 g/dL N 3.2-5.2 Globulin 2.1 g/dL N 2-4 Albumin/Globulin Ratio 2.2 N 1-3 Total Bilirubin 0.70 mg/dL N 0.2-1.0 Alkaline Phosphatase 58 U/L N 34-104 Alt 14 U/L N 7-52 Ast 17 U/L N 13-39 Egfr Non- 80.7 N >60 Egfr 103.8 N >60 4 Laboratory test 02/06/2016 [facility] Magnesium 2.1 mg/dL N 1.9-2.7 [address] [place] [address] [phone] TSH (Thyroid Stim Horm) 3.07 ?IU/mL N 0.34-5.60 6 CBC Auto Diff 08/29/2015 [facility] White Blood 5.9 10^3/uL N 4.8-10.[address] [place] [address] [phone] Red Blood Count 4.40 10^6/uL N 4.0-5.4 Hemoglobin 14.4 g/dL N 12.0-16.0 Hematocrit 43 % N 35-47 Mean Corpuscular Volume 98 fL High 80-97 Mean Corpuscular Hemoglobin 33 pg High 27-31 Mean Corpuscular HGB Conc 34 g/dL N 31-36 Red Cell Distribution Width 13 % N 10.5-15 Platelet Count 239 10^3/uL N 150-450 Mean Platelet Volume 9 um3 N 7.4-10.4 Abs Neutrophils 3.3 10^3/uL N 1.5-7.7 Abs Lymphocytes 1.9 10^3/uL N 1.0-4.8 Abs Monocytes 0.5 10^3/uL N 0-0.8 Abs Eosinophils 0.2 10^3/uL N 0-0.6 Abs Basophils 0.1 10^3/uL N 0-0.2 Abs Nucleated RBC 0 10^3/uL N Granulocyte % 55.2 % N 38-83 Lymphocyte % 31.5 % N 25-47 Monocyte % 8.6 % N 1-9 Eosinophil % 3.4 % N 0-6 Basophil % 1.3 % N 0-2 Nucleated Red Blood Cells % 0 N Inr/Protime 08/29/2015 [facility] Inr 0.88 N 0.78-1.[address] [place] [address] [phone] Comp Metabolic Panel 08/29/2015 [facility] Sodium 138 mmol/L N 133-[address] [place] [address] [phone] Potassium 4.4 mmol/L N 3.5-5.0 Chloride 106 mmol/L N 101-111 Co2 Carbon Dioxide 26 mmol/L N 22-32 Anion Gap 6 mmol/L N 2-11 Glucose 139 mg/dL High 70-100 Blood Urea Nitrogen 19 mg/dL N 6-24 Creatinine 0.73 mg/dL N 0.51-0.95 BUN/Creatinine Ratio 26.0 High 8-20 Calcium 10.0 mg/dL N 8.6-10.3 Total Protein 6.6 g/dL N 6.4-8.9 Albumin 4.3 g/dL N 3.2-5.2 Globulin 2.3 g/dL N 2-4 Albumin/Globulin Ratio 1.9 N 1-3 Total Bilirubin 0.30 mg/dL N 0.2-1.0 Alkaline Phosphatase 57 U/L N 34-104 Alt 12 U/L N 7-52 Ast 17 U/L N 13-39 Egfr Non- 77.1 N >60 Egfr 99.2 N >60 7 Laboratory test 08/29/2015 [facility] Magnesium 2.1 mg/dL N 1.9-2.[address] [place] [address] [phone] Troponin-I (TnI) 0.00 ng/mL N <0.03 8 B-Type Natriuretic Peptide BNP 177 pg/mL High 9 CBC Auto Diff 10/12/2014 [facility] White Blood 8.3 10^3/uL N 4.8-10.[address] [place] [address] [phone] Red Blood Count 4.42 10^6/uL N 4.0-5.4 Hemoglobin 14.5 g/dL N 12.0-16.0 Hematocrit 43 % N 35-47 Mean Corpuscular Volume 97 fL N 80-97 Mean Corpuscular Hemoglobin 33 pg High 27-31 Mean Corpuscular HGB Conc 34 g/dL N 31-36 Red Cell Distribution Width 13 % N 10.5-15 Platelet Count 258 10^3/uL N 150-450 Mean Platelet Volume 10 um3 N 7.4-10.4 Abs Neutrophils 5.5 10^3/uL N 1.5-7.7 Abs Lymphocytes 2.0 10^3/uL N 1.0-4.8 Abs Monocytes 0.5 10^3/uL N 0-0.8 Abs Eosinophils 0.2 10^3/uL N 0-0.6 Abs Basophils 0.1 10^3/uL N 0-0.2 Abs Nucleated RBC 0 10^3/uL N Granulocyte % 66.0 % N 38-83 Lymphocyte % 24.5 % Low 25-47 Monocyte % 6.2 % N 1-9 Eosinophil % 2.5 % N 0-6 Basophil % 0.8 % N 0-2 Nucleated Red Blood Cells % 0 N Comp Metabolic Panel 10/12/2014 [facility] Sodium 137 mmol/L N 133-145 [address] [place] [address] [phone] Potassium 4.1 mmol/L N 3.5-5.0 10 Chloride 107 mmol/L N 101-111 Co2 Carbon Dioxide 24 mmol/L N 22-32 Anion Gap 6 mmol/L N 2-11 Glucose 98 mg/dL N 70-100 Blood Urea Nitrogen 18 mg/dL N 6-24 Creatinine 0.69 mg/dL N 0.51-0.95 BUN/Creatinine Ratio 26.1 High 8-20 Calcium 9.7 mg/dL N 8.6-10.3 Total Protein 6.9 g/dL N 6.4-8.9 Albumin 4.4 g/dL N 3.2-5.2 Globulin 2.5 g/dL N 2-4 Albumin/Globulin Ratio 1.8 N 1-3 Total Bilirubin 0.50 mg/dL N 0.2-1.0 Alkaline Phosphatase 62 U/L N 34-104 Alt 14 U/L N 7-52 Ast 17 U/L N 13-39 Egfr Non- 82.3 N >60 Egfr 105.8 N >60 11 Laboratory test finding 10/12/2014 [facility] Lipase 52 U/L N 11.0-82.0 [address] [place] [address] [phone] Troponin I 0.00 ng/mL N <0.03 12 C Reactive Protein 7.61 mg/L High < 5.00 13 Laboratory test 09/20/2014 [facility] Free T4 1.22 ng/mL High 0.61-1.12 finding [address] [place] [address] [phone] TSH (Thyroid Stimulating Horm) 0.57 IU/mL N 0.34-5.60 Laboratory test 03/22/2014 [facility] Troponin I 0.00 ng/mL N <0.03 [address] [place] [address] [phone] CBC Auto Diff 03/22/2014 [facility] White Blood 4.9 N 4.8- 10.[address] Count 10^3/[place] [address] [phone] Red Blood Count 4.13 10^6/uL N 4.0-5.4 Hemoglobin 14.0 g/dL N 12.0-16.0 Hematocrit 40 % N 35-47 Mean Corpuscular Volume 96 fL N 80-97 Mean Corpuscular Hemoglobin 34 pg High 27-31 Mean Corpuscular HGB Conc 35 g/dL N 31-36 Red Cell Distribution Width 13 % N 10.5-15 Platelet Count 231 10^3/uL N 150-450 Mean Platelet Volume 9 um3 N 7.4-10.4 Abs Neutrophils 2.1 10^3/uL N 1.5-7.7 Abs Lymphocytes 2.0 10^3/uL N 1.0-4.8 Abs Monocytes 0.4 10^3/uL N 0-0.8 Abs Eosinophils 0.2 10^3/uL N 0-0.6 Abs Basophils 0.1 10^3/uL N 0-0.2 Abs Nucleated RBC 0 10^3/uL N Inr/Protime 03/22/2014 [facility] Inr 0.80 Low 0.85-1.[address] [place] [address] [phone] Laboratory test 03/22/2014 [facility] Activated 28.6 N 24.0- 36.[address] [place] [address] Thrombo Time [phone] D Dimer Quantitative < 200 ng/mL N Less Than 230 15 B Type Natriuretic Peptide 122 pg/mL N 16 Comp Metabolic Panel 03/22/2014 [facility] Sodium 136 mmol/L N 133-[address] [place] [address] [phone] Potassium 4.2 mmol/L N 3.7-5.6 Chloride 104 mmol/L N 101-111 Co2 Carbon Dioxide 28 mmol/L N 22-32 Anion Gap 4 mmol/L N 2-11 Glucose 87 mg/dL N 70-100 Blood Urea Nitrogen 14 mg/dL N 6-24 Creatinine 0.71 mg/dL N 0.51-0.95 BUN/Creatinine Ratio 19.7 N 8-20 Calcium 9.3 mg/dL N 8.6-10.3 Total Protein 6.2 g/dL Low 6.4-8.9 Albumin 4.2 g/dL N 3.2-5.2 Globulin 2.0 g/dL N 2-4 Albumin/Globulin Ratio 2.1 N 1-3 Total Bilirubin 0.60 mg/dL N 0.2-1.0 Alkaline Phosphatase 48 U/L N 34-104 Alt 14 U/L N 7-52 Ast 18 U/L N 13-39 Egfr Non- 79.8 N >60 Egfr 102.7 N >60 17 Laboratory test 03/22/2014 [facility] Creatine Kinase 47 U/L N 10-[address] [place] [address] [phone] CKMB 03/22/2014 [facility] CKMB ng/mL 3.4 N 0.6-6.[address] ng/[place] [address] [phone] Laboratory test 03/22/2014 [facility] Troponin I 0.00 N <0.03 [address] ng/mL [place], [place] [id number] [phone] Manual 03/22/2014 [facility] Neutrophil % 42 % N 38-[address] [place], [place] [id number] [phone] Lymphocytes % 45 % N 25-47 Monocytes % 5 % N 0-13 Eosinophils % 5 % N 0-6 Basophil % 3 % High 0-2 RBC Morphology Normal N Normal Laboratory test 03/22/2014 [facility] TSH (Thyroid 7.03 High 0.34-5.[address] Stimulating IU/[place] [address] Horm) [phone] Pathologist Review (SEE NOTE) N 19 Comp Metabolic Panel 01/25/2014 [facility] Sodium 139 mmol/L 133-[address] [place] [address] [phone] Potassium 4.5 mmol/L 3.7-5.6 Chloride 105 mmol/L 101-111 Co2 Carbon Dioxide 30 mmol/L 22-32 Anion Gap 4 mmol/L 2-11 Glucose 89 mg/dL 70-100 Blood Urea Nitrogen 15 mg/dL 6-24 Creatinine 0.69 mg/dL 0.51-0.95 BUN/Creatinine Ratio 21.7 High 8-20 Calcium 9.9 mg/dL 8.6-10.3 Total Protein 6.6 g/dL 6.4-8.9 Albumin 4.3 g/dL 3.2-5.2 Globulin 2.3 g/dL 2-4 Albumin/Globulin Ratio 1.9 1-3 Total Bilirubin 0.60 mg/dL 0.2-1.0 Alkaline Phosphatase 49 U/L 34-104 Alt 12 U/L 7-52 Ast 15 U/L 13-39 Egfr Non- 82.5 >60 Egfr 106.1 >60 20 Lipid Profile 01/25/2014 [facility] Triglycerides 60 mg/dL 21 (Trig/Chol/HDL) [place] [address] [phone] Cholesterol 168 mg/dL 22 HDL Cholesterol 73.7 mg/dL 23 LDL Cholesterol 82 mg/dL 24 Laboratory 01/25/2014 [facility] TSH (Thyroid 6.53 High 0.34- 5.[address] Stimulating IU/[place] [address] Horm) [phone] Surgical 08/27/2013 [facility] S RUN DATE: [address] 08/28/ [place] [address] <SEE [phone] NOTE> Inr/Protime 08/24/2013 [facility] Inr 0.82 Low 0.87-0.[address] [place] [address] [phone] CBC Auto Diff 08/24/2013 [facility] White Blood 6.3 4.8-10.[address] Count 10^3/[place] [address] [phone] Red Blood Count 4.13 10^6/uL 4.0-5.4 Hemoglobin 14.0 g/dL 12.0-16.0 Hematocrit 40 % 35-47 Mean Corpuscular Volume 97 fL 80-97 Mean Corpuscular Hemoglobin 34 pg High 27-31 Mean Corpuscular HGB Conc 35 g/dL 31-36 Red Cell Distribution Width 13 % 10.5-15 Platelet Count 242 10^3/uL 150-450 Mean Platelet Volume 10 um3 7.4-10.4 Abs Neutrophils 3.5 10^3/uL 1.5-7.7 Abs Lymphocytes 1.9 10^3/uL 1.0-4.8 Abs Monocytes 0.6 10^3/uL 0-0.8 Abs Eosinophils 0.2 10^3/uL 0-0.6 Abs Basophils 0.1 10^3/uL 0-0.2 Abs Nucleated RBC 0 10^3/uL Granulocyte % 56.6 % 38-83 Lymphocyte % 30.2 % 25-47 Monocyte % 8.9 % 1-9 Eosinophil % 2.9 % 0-6 Basophil % 1.4 % 0-2 Nucleated Red Blood Cells % 0 Basic Metabolic Panel 08/24/2013 [facility] Sodium 138 mmol/L 133-[address] [place] [address] [phone] Potassium 4.5 mmol/L 3.5-5.0 Chloride 106 mmol/L 101-111 Co2 Carbon Dioxide 27.0 mmol/L 22-32 Anion Gap 5.0 mmol/L 2-11 Glucose 93 mg/dL 70-100 Blood Urea Nitrogen 19 mg/dL 6-24 Creatinine 0.60 mg/dL 0.50-1.40 BUN/Creatinine Ratio 31.7 High 8-20 Calcium 9.8 mg/dL 8.1-9.9 Egfr Non- 97.2 >60 Egfr 125.0 >60 27 Pre Cath Panel 08/24/2013 [facility] Activated 30.2 22.18- 37.[address] [place] [address] Thrombo Time [phone] Basic 10/24/2012 [facility] Sodium 140 mmol/L 133-[address] [place] [address] [phone] Potassium 4.4 mmol/L 3.5-5.0 Chloride 105 mmol/L 101-111 Co2 Carbon Dioxide 30.0 mmol/L 22-32 Anion Gap 5.0 mmol/L 2-11 Glucose 91 mg/dL 70-100 Blood Urea Nitrogen 16 mg/dL 6-24 Creatinine 0.70 mg/dL 0.50-1.40 BUN/Creatinine Ratio 22.9 High 8-20 Calcium 9.8 mg/dL 8.1-9.9 Egfr Non- 81.4 >60 Egfr 104.6 >60 28 Comp Metabolic Panel 09/08/2012 [facility] Sodium 139 mmol/L 133-[address] [place] [address] [phone] Potassium 5.1 mmol/L High 3.5-5.0 Chloride 108 mmol/L 101-111 Co2 Carbon Dioxide 28.0 mmol/L 22-32 Anion Gap 3.0 mmol/L 2-11 Glucose 90 mg/dL 70-100 Blood Urea Nitrogen 26 mg/dL High 6-24 Creatinine 0.90 mg/dL 0.50-1.40 BUN/Creatinine Ratio 28.9 High 8-20 Calcium 9.9 mg/dL 8.1-9.9 Total Protein 6.1 GM/DL Low 6.2-8.1 Albumin 3.8 GM/DL 3.2-5.2 Globulin 2.3 GM/DL 2-4 Albumin/Globulin Ratio 1.7 1-3 Total Bilirubin 0.9 mg/dL 0.1-1.0 29 Alkaline Phosphatase 49 U/L 30-110 Alt 16 U/L 14-54 Ast 18 U/L 12-42 Egfr Non- 60.9 >60 Egfr 78.3 >60 30 Lipid Profile 09/08/2012 [facility] Triglycerides 58 mg/dL 40 -200 (Trig/Chol/HDL) [address] [place] [address] [phone] Cholesterol 184 mg/dL Less than 200 31 HDL Cholesterol 79 mg/dL High 40-60 32 Cholesterol/HDL Ratio 2.3 AVERAGE 1-4.44 LDL Cholesterol 93.4 mg/dL Less Than 100 Laboratory test 09/08/2012 [facility] Creatine 40 U/L 0-[address] [place] [address] [phone] CBC Auto Diff 09/08/2012 [facility] White Blood 4.6 Low 4.8- 10.[address] Count 10^3/[place] [address] [phone] Red Blood Count 4.03 10^6/uL 4.0-5.4 Hemoglobin 13.5 g/dL 12.0-16.0 Hematocrit 40 % 35-47 Mean Corpuscular Volume 99 fL High 80-97 Mean Corpuscular Hemoglobin 33 pg High 27-31 Mean Corpuscular HGB Conc 34 g/dL 31-36 Red Cell Distribution Width 13 % 10.5-15 Platelet Count 241 10^3/uL 150-450 Mean Platelet Volume 10 um3 7.4-10.4 Abs Neutrophils 2.3 10^3/uL 1.5-7.7 Abs Lymphocytes 1.5 10^3/uL 1.0-4.8 Abs Monocytes 0.4 10^3/uL 0-0.8 Abs Eosinophils 0.2 10^3/uL 0-0.6 Abs Basophils 0.1 10^3/uL 0-0.2 Abs Nucleated RBC 0 10^3/uL Granulocyte % 50.4 % 38-83 Lymphocyte % 33.2 % 25-47 Monocyte % 9.7 % High 1-9 Eosinophil % 5.3 % 0-6 Basophil % 1.4 % 0-2 Nucleated Red Blood Cells % 0 Laboratory 09/08/2012 [facility] TSH (Thyroid 1.71 0.34-5.[address] Stimulating MIU/[place] [address] Horm) [phone] Lipid Panel - 12/13/2010 [facility] CPK (Creatine 40 U/L 0- [address] Kinase) [place] [address] [phone] Comp Metabolic 12/13/2010 [facility] Sodium 134 mmol/L Low 135 -[address] [place] [address] [phone] Potassium 4.5 mmol/L 3.5-5.0 Chloride 101 mmol/L 101-111 Co2 (Carbon Dioxide) 27.0 mmol/L 22-32 Anion Gap 6.0 mmol/L 2-11 35 Glucose 90 mg/dL 70-100 BUN 21 mg/dL 6-24 Creatinine 0.80 mg/dL 0.50-1.40 One Over Creatinine 1.20 BUN/Creatinine Ratio 26.3 High 8-20 Calcium 9.3 mg/dL 8.1-9.9 Total Protein 5.9 GM/DL Low 6.2-8.1 Albumin 4.0 GM/DL 3.2-5.2 Globulin 1.9 GM/DL Low 2-4 Albumin/Globulin Ratio 2.1 1-3 Bilirubin Total 0.9 mg/dL 0.4-1.5 36 Alkaline Phosphatase 45 U/L 30-110 Alt (SGPT) 16 U/L 14-54 Ast (Sgot) 19 U/L 12-42 eGFR Non- 74.5 > 60 eGFR 90.2 > 60 37 Lipid Profile 12/13/2010 [facility] Triglyceride 40 mg/dL 40- 200 (Trig/Chol/HDL) [address] [place] [address] [phone] Cholesterol 181 mg/dL Less Than 200 38 High Density Lipoprotein 79 mg/dL High 40-60 39 Cholesterol/HDL Ratio 2.29 AVERAGE 1-4.44 Low Density Lipoprotein 94 mg/dL Less Than 100 40 Laboratory test 04/18/2010 [facility] Thyroxine Free 1.22 NG/ML 0.61-1.24 41 finding [address] [place] [address] [phone] TSH 3.66 MIU/ML 0.34-5.60 Lipid Profile 04/18/2010 [facility] Triglyceride 42 mg/dL 40- 200 (Trig/Chol/HDL) [address] [place] [address] [phone] Cholesterol 159 mg/dL Less Than 200 42 High Density Lipoprotein 67 mg/dL High 40-60 43 Cholesterol/HDL Ratio 2.37 AVERAGE 1-4.44 Low Density Lipoprotein 84 mg/dL Less Than 100 44 Urine Culture & 05/10/2009 [facility] Urine Culture NF1 45 [address] [facility] [place] [address] [phone] Basic Metabolic 04/07/2009 [facility] Sodium 138 mmol/L 135- [address] [place] [address] [phone] Potassium 4.9 mmol/L 3.5-5.0 Chloride 103 mmol/L 101-111 Co2 (Carbon Dioxide) 30.0 mmol/L 22-32 Anion Gap 5.0 mmol/L 2-11 46 Glucose 99 mg/dL 70-100 47 BUN 24 mg/dL 6-24 Creatinine 0.80 mg/dL 0.50-1.40 One Over Creatinine 1.20 BUN/Creatinine Ratio 30.0 High 8-20 Calcium 9.9 mg/dL 8.1-9.9 48 Lipid Profile 04/07/2009 [facility] Triglyceride 60 mg/dL 40- 200 (Trig/Chol/HDL) [address] [place] [address] [phone] Cholesterol 161 mg/dL Less Than 200 49 High Density Lipoprotein 69 mg/dL High 40-60 50 Cholesterol/HDL Ratio 2.33 AVERAGE 1-4.44 Low Density Lipoprotein 80 mg/dL Less Than 100 51 Laboratory test 04/07/2009 [facility] CPK (Creatine 52 U/L 0- [address] Kinase) [place] [address] [phone] Basic Metabolic 03/24/2009 [facility] Sodium 139 135-[address] mmol/[place] [address] [phone] Potassium 5.4 mmol/L High 3.5-5.0 Chloride 104 mmol/L 101-111 Co2 (Carbon Dioxide) 29.0 mmol/L 22-32 Anion Gap 6.0 mmol/L 2-11 52 Glucose 97 mg/dL 70-100 53 BUN 15 mg/dL 6-24 Creatinine 0.70 mg/dL 0.50-1.40 One Over Creatinine 1.40 BUN/Creatinine Ratio 21.4 High 8-20 Calcium 10.2 mg/dL High 8.1-9.9 54 Laboratory test 03/24/2009 [facility] TSH 1.72 MIU/ML 0.34- 5.[address] [place] [address] [phone] CBC With Manual 03/24/2009 [facility] White Blood 4.6 CUMM Low 4.8-10.[address] [place] [address] [phone] Red Cell Count 4.16 CUMM Low 4.2-5.4 Hemoglobin 13.5 g/dL 12.0-16.0 Hematocrit 39 % 35-47 Mean Corpuscular Volume 94 um3 79-97 Mean Corpuscular Hemoglob 32 pg High 27-31 Mean Corpuscular HGB Cone 35 g/dL 32-36 Redcell Distribution WDTH 13 % 10.5-15 Platelet Count 239 CUMM 150-450 Mean Platelet Volume 8.8 um3 7.4-10.4 Polysegmented Neutrophil 46 % 38-83 Lymphocyte 44 % 25-47 Monocyte 6 % 0-13 Eosenophil 3 % 0-6 Basophil 1 % 0-2 Absolute Neutrophil Count 2.1 RBC Morphology NORMAL Gram Neg Arnaud Sensitivity 08/23/2008 [facility] Ampicillin >=[address] [place] [address] [phone] Amikacin <=2 S Ciprofloxacin <=0.25 S Cefazolin <=4 S Nitrofurantoin 64 I Gentamicin <=1 S Imipenem <=1 S Levofloxacin <=0.25 S Meropenem <=0.25 S Trimeth-Sulfa <=20 S Tigecylcine <=0.5 S Piperacillin/Tazobactam <=4 S CBC With Manual 08/21/2008 [facility] White Blood 5.7 CUMM 4.8-10.[address] [place] [address] [phone] Red Cell Count 4.03 CUMM Low 4.2-5.4 Hemoglobin 13.2 g/dL 12.0-16.0 Hematocrit 38 % 35-47 Mean Corpuscular Volume 93 um3 79-97 Mean Corpuscular Hemoglob 33 pg High 27-31 Mean Corpuscular HGB Cone 35 g/dL 32-36 Redcell Distribution WDTH 13 % 10.5-15 Platelet Count 320 CUMM 150-450 Mean Platelet Volume 9.8 um3 7.4-10.4 Polysegmented Neutrophil 60 % 38-83 Band Neutrophil 3 % 0-8 Lymphocyte 31 % 5-47 Monocyte 4 % 0-13 Basophil 1 % 0-2 Atypical Lymph 1 % 0-6 Absolute Neutrophil Count 3.5 Anisocytosis SLIGHT Ovalocytes FEW Laboratory test 08/21/2008 [facility] TSH 1.48 MIU/ML 0.34- 5.[address] [place] [address] [phone] Comp Metabolic 08/21/2008 [facility] Sodium 140 mmol/L 135- [address] [place] [address] [phone] Potassium 5.1 mmol/L High 3.5-5.0 Chloride 108 mmol/L 101-111 Co2 (Carbon Dioxide) 28.0 mmol/L 22-32 Anion Gap 4.0 mmol/L 2-11 55 Glucose 76 mg/dL 70-100 56 BUN 19 mg/dL 6-24 Creatinine 0.8 mg/dL 0.5-1.4 One Over Creatinine 1.25 BUN/Creatinine Ratio 23.8 High 8-20 Calcium 10.0 mg/dL High 8.1-9.9 57 Total Protein 6.7 GM/DL 6.2-8.1 Albumin 4.1 GM/DL 3.2-5.2 Globulin 2.6 GM/DL 2-4 Albumin/Globulin Ratio 1.6 1-3 Bilirubin Total 0.6 mg/dL 0.4-1.5 Alkaline Phosphatase 61 U/L 30-110 Alt (SGPT) 22 U/L 14-54 Ast (Sgot) 23 U/L 12-42 Laboratory test 08/21/2008 [facility] Urine Culture ESCHERICHIA COLI finding [address] [place] [address] [phone] Laboratory test 07/07/2008 [facility] Urine Culture ESCHERICHIA COLI finding [address] [place] [address] [phone] Gram Neg Arnaud 07/07/2008 [facility] Ampicillin >=32 R Sensitivity [address] [place] [address] [phone] Amikacin <=2 S Ciprofloxacin <=0.25 S Cefazolin <=4 S Nitrofurantoin 64 I Gentamicin <=1 S Imipenem <=1 S Levofloxacin <=0.25 S Meropenem <=0.25 S Trimeth-Sulfa <=20 S Tigecylcine <=0.5 S Piperacillin/Tazobactam <=4 S C. Difficile 06/24/2008 [facility] C. Difficile TEST 58, [address] Toxin [place] [address] <SEE NOTE> [phone] CBC With 06/23/2008 [facility] White Blood 7.2 CUMM 4.8- 60 Manual Diff [address] Count 10.8 [place] [address] [phone] Red Cell Count 4.14 CUMM Low 4.2-5.4 Hemoglobin 13.6 g/dL 12.0-16.0 Hematocrit 39 % 35-47 Mean Corpuscular Volume 93 um3 79-97 Mean Corpuscular Hemoglob 33 pg High 27-31 Mean Corpuscular HGB Cone 35 g/dL 32-36 Redcell Distribution WDTH 13 % 10.5-15 Platelet Count 251 CUMM 150-450 Mean Platelet Volume 10.4 um3 7.4-10.4 Polysegmented Neutrophil 77 % 38-83 Lymphocyte 17 % 5-47 Monocyte 6 % 0-13 Absolute Neutrophil Count 5.5 Anisocytosis SLIGHT Lipid Profile 03/05/2008 [facility] Cholesterol/HDL 2.74 1- 4.44 61 (Trig/Chol/HDL) [address] [place] [address] [phone] Cholesterol 178 mg/dL Less Than 200 62 Triglyceride 40 mg/dL 40-200 High Density Lipoprotein 65 mg/dL High 40-60 63 Low Density Lipoprotein 105 mg/dL High Less Than 100 64 Comp Metabolic Panel 03/05/2008 [facility] One Over Creatinine 1.[address] [place] [address] [phone] Anion Gap 8.0 mmol/L 2-11 65 Albumin/Globulin Ratio 1.4 1-3 Albumin 3.9 GM/DL 3.2-5.2 Alkaline Phosphatase 61 U/L 30-110 Alt (SGPT) 20 U/L 14-54 Ast (Sgot) 24 U/L 12-42 BUN 21 mg/dL 6-24 Calcium 9.1 mg/dL 8.7-10.2 Chloride 105 mmol/L 101-111 Co2 (Carbon Dioxide) 26.0 mmol/L 22-32 Globulin 2.7 GM/DL 2-4 Glucose 93 mg/dL 70-105 Potassium 4.5 mmol/L 3.5-5.0 Sodium 139 mmol/L 135-145 66 Bilirubin Total 0.7 mg/dL 0.4-1.5 Total Protein 6.6 GM/DL 6.2-8.1 BUN/Creatinine Ratio 26.3 High 8-20 Creatinine 0.8 mg/dL 0.5-1.4 Lipid Panel - 03/05/2008 [facility] CPK (Creatine 53 U/L 0- [address] Kinase) [place] [address] [phone] Laboratory test 03/05/2008 [facility] Free Thyroxine 1.21 0.61-1.24 [address] NG/[place] [address] [phone] TSH 1.24 MIU/ML 0.34-5.60 1 Normal Range 180 to 914 Indeterminate Range 145 to 180 Deficient Range <145 2 Because ethnic data is not always readily available, this report includes an eGFR for both -Americans and non- Americans. The National Kidney Disease Education Program (NKDEP) does not endorse the use of the MDRD equation for patients that are not between the ages of 18 and 70, are , have extremes of body size, muscle mass, or nutritional status, or are non- or non-. According to the National Kidney Foundation, irrespective of diagnosis, the stage of the disease is based on the level of kidney function: Stage Description GFR(mL/min/1.73 m(2)) 1 Kidney damage with normal or decreased GFR 90 2 Kidney damage with mild decrease in GFR 60-89 3 Moderate decrease in GFR 30-59 4 Severe decrease in GFR 15-29 5 Kidney failure <15 (or dialysis) 3 FASTING 4 Because ethnic data is not always readily available, this report includes an eGFR for both -Americans and non- Americans. The National Kidney Disease Education Program (NKDEP) does not endorse the use of the MDRD equation for patients that are not between the ages of 18 and 70, are , have extremes of body size, muscle mass, or nutritional status, or are non- or non-. According to the National Kidney Foundation, irrespective of diagnosis, the stage of the disease is based on the level of kidney function: Stage Description GFR(mL/min/1.73 m(2)) 1 Kidney damage with normal or decreased GFR 90 2 Kidney damage with mild decrease in GFR 60-89 3 Moderate decrease in GFR 30-59 4 Severe decrease in GFR 15-29 5 Kidney failure <15 (or dialysis) 5 FASTING 6 FASTING 7 Because ethnic data is not always readily available, this report includes an eGFR for both -Americans and non- Americans. The National Kidney Disease Education Program (NKDEP) does not endorse the use of the MDRD equation for patients that are not between the ages of 18 and 70, are , have extremes of body size, muscle mass, or nutritional status, or are non- or non-. According to the National Kidney Foundation, irrespective of diagnosis, the stage of the disease is based on the level of kidney function: Stage Description GFR(mL/min/1.73 m(2)) 1 Kidney damage with normal or decreased GFR 90 2 Kidney damage with mild decrease in GFR 60-89 3 Moderate decrease in GFR 30-59 4 Severe decrease in GFR 15-29 5 Kidney failure <15 (or dialysis) 8 Reference Range and Interpretation: TnI (ng/mL) Interpretation Less Than 0.03 ng/mL Not supportive of diagnosis of MS 0.03 - 0.50 ng/mL Indeterminate: suggest serial studies if clinically indicated. Greater than 0.5 ng/mL Consistent with diagnosis of MS 9 >100 to <200 pg/mL: likely compensated congestive heart failure (CHF) 200 to 400 pg/mL: likely moderate CHF >400 pg/mL: likely moderate to severe CHF 10 Potassium reference range changed effective 09/26/14 11 Because ethnic data is not always readily available, this report includes an eGFR for both -Americans and non- Americans. The National Kidney Disease Education Program (NKDEP) does not endorse the use of the MDRD equation for patients that are not between the ages of 18 and 70, are , have extremes of body size, muscle mass, or nutritional status, or are non- or non-. According to the National Kidney Foundation, irrespective of diagnosis, the stage of the disease is based on the level of kidney function: Stage Description GFR(mL/min/1.73 m(2)) 1 Kidney damage with normal or decreased GFR 90 2 Kidney damage with mild decrease in GFR 60-89 3 Moderate decrease in GFR 30-59 4 Severe decrease in GFR 15-29 5 Kidney failure <15 (or dialysis) 12 Reference Range and Interpretation: TnI (ng/mL) Interpretation Less Than 0.03 ng/mL Not supportive of diagnosis of MS 0.03 - 0.50 ng/mL Indeterminate: suggest serial studies if clinically indicated. Greater than 0.5 ng/mL Consistent with diagnosis of MS 13 Acute inflammation: >10.00 14 Reference Range and Interpretation: TnI (ng/mL) Interpretation Less Than 0.03 ng/mL Not supportive of diagnosis of MS 0.03 - 0.50 ng/mL Indeterminate: suggest serial studies if clinically indicated. Greater than 0.5 ng/mL Consistent with diagnosis of MS 15 Please note: The following may produce a false positive D Dimer test: - Rheumatoid factor greater than 60 IU/ml - Plasma hemoglobin greater than 0.05 gm/dl - Bilirubin greater than 50 mg/dl - Lipids greater than 1000 mg/dl - FDP greater than 20 ug/ml 16 >100 to <200 pg/mL: likely compensated congestive heart failure (CHF) 200 to 400 pg/mL: likely moderate CHF >400 pg/mL: likely moderate to severe CHF [place] [facility] 17 Because ethnic data is not always readily available, this report includes an eGFR for both -Americans and non- Americans. The National Kidney Disease Education Program (NKDEP) does not endorse the use of the MDRD equation for patients that are not between the ages of 18 and 70, are , have extremes of body size, muscle mass, or nutritional status, or are non- or non-. According to the National Kidney Foundation, irrespective of diagnosis, the stage of the disease is based on the level of kidney function: Stage Description GFR(mL/min/1.73 m(2)) 1 Kidney damage with normal or decreased GFR 90 2 Kidney damage with mild decrease in GFR 60-89 3 Moderate decrease in GFR 30-59 4 Severe decrease in GFR 15-29 5 Kidney failure <15 (or dialysis) 18 Reference Range and Interpretation: TnI (ng/mL) Interpretation Less Than 0.03 ng/mL Not supportive of diagnosis of MS 0.03 - 0.50 ng/mL Indeterminate: suggest serial studies if clinically indicated. Greater than 0.5 ng/mL Consistent with diagnosis of MS 19 CBC and smear reviewed. REVIEWED BY SHAD CRUZ MD 20 Because ethnic data is not always readily available, this report includes an eGFR for both -Americans and non- Americans. The National Kidney Disease Education Program (NKDEP) does not endorse the use of the MDRD equation for patients that are not between the ages of 18 and 70, are , have extremes of body size, muscle mass, or nutritional status, or are non- or non-. According to the National Kidney Foundation, irrespective of diagnosis, the stage of the disease is based on the level of kidney function: Stage Description GFR(mL/min/1.73 m(2)) 1 Kidney damage with normal or decreased GFR 90 2 Kidney damage with mild decrease in GFR 60-89 3 Moderate decrease in GFR 30-59 4 Severe decrease in GFR 15-29 5 Kidney failure <15 (or dialysis) 21 Desirable <150 Borderline high 150-199 High 200-499 Very High >500 22 Desirable <200 Borderline high 200-239 High >239 23 Low <40 Desirable: 40-60 High: >60 24 Desirable <100 Near Optimal 100-129 Borderline high 130-159 High 160-189 Very High >189 25 PT IS FASTING 26 RUN DATE: 08/28/13 [facility] LAB LIVE PAGE 1 RUN TIME: 1824 [address] [place], [place] [address] Specimen Inquiry Name: LEEANN ESPINOZA : [address]: Jp Ni MD Acct: [id number] Unit: [id number] AGE: 77 Location: OR Re08/27/13 SEX: F Status: REG [facility] SPEC: [id number] LILLIAN: 08/27/13- [facility] DR: Jp Ni MD REQ: [id number] RECD: [id number] STATUS: SOUT _ ORDERED: LEVEL I FINAL DIAGNOSIS Foreign body (medical collections representative): surgical assistant as described below (Gross exam). PRE-OPERATIVE DIAGNOSIS Ventricular tachycardia GROSS DESCRIPTION The specimen is received labeled Leeann Espinoza, Undesignated and consists of a medical collections representative that measures 6.0 x 5.0 x 1.5 cm. The device is inscribed with [employer] and the serial number: [id number] and the letters [id number]. The opposing side has a barcode. Per established hospital medical staff protocol no tissue is submitted for light microscopy. Gross examination only. Signed (signature on file) Leeann Hidalgo MD 03/07 1825 END OF REPORT * ML=Testing performed at Main Lab DEPARTMENT OF PATHOLOGY, [address] [place] [address] Shad Cruz M.D. Director [facility] Permit #[id number] 27 Because ethnic data is not always readily available, this report includes an eGFR for both -Americans and non- Americans. The National Kidney Disease Education Program (NKDEP) does not endorse the use of the MDRD equation for patients that are not between the ages of 18 and 70, are , have extremes of body size, muscle mass, or nutritional status, or are non- or non-. According to the National Kidney Foundation, irrespective of diagnosis, the stage of the disease is based on the level of kidney function: Stage Description GFR(mL/min/1.73 m(2)) 1 Kidney damage with normal or decreased GFR 90 2 Kidney damage with mild decrease in GFR 60-89 3 Moderate decrease in GFR 30-59 4 Severe decrease in GFR 15-29 5 Kidney failure <15 (or dialysis) 28 Because ethnic data is not always readily available, this report includes an eGFR for both -Americans and non- Americans. The National Kidney Disease Education Program (NKDEP) does not endorse the use of the MDRD equation for patients that are not between the ages of 18 and 70, are , have extremes of body size, muscle mass, or nutritional status, or are non- or non-. According to the National Kidney Foundation, irrespective of diagnosis, the stage of the disease is based on the level of kidney function: Stage Description GFR(mL/min/1.73 m(2)) 1 Kidney damage with normal or decreased GFR 90 2 Kidney damage with mild decrease in GFR 60-89 3 Moderate decrease in GFR 30-59 4 Severe decrease in GFR 15-29 5 Kidney failure <15 (or dialysis) 29 A metabolite of Naproxen, O-desmethylnaproxen, has been shown to interfere with the Jendrassik-Fred method for measuring total bilirubin. Samples from patients who have taken Naproxen have shown spurious elevation in total bilirubin levels. 30 Because ethnic data is not always readily available, this report includes an eGFR for both -Americans and non- Americans. The National Kidney Disease Education Program (NKDEP) does not endorse the use of the MDRD equation for patients that are not between the ages of 18 and 70, are , have extremes of body size, muscle mass, or nutritional status, or are non- or non-. According to the National Kidney Foundation, irrespective of diagnosis, the stage of the disease is based on the level of kidney function: Stage Description GFR(mL/min/1.73 m(2)) 1 Kidney damage with normal or decreased GFR 90 2 Kidney damage with mild decrease in GFR 60-89 3 Moderate decrease in GFR 30-59 4 Severe decrease in GFR 15-29 5 Kidney failure <15 (or dialysis) 31 Desirable: Less than 200 MG/DL Borderline-High Risk: 200-239 MG/DL High-Risk: 240 MG/DL and over 32 HDL Interpretation: Undesirable: High Risk: Less than 40 MG/DL Desirable: Low Risk: Greater than 60 MG/DL 33 FASTING 34 FASTING 35 Anion gap measurement may be of limited value in the presence of any alkalosis, especially in a combined acid base disorder. . 36 A metabolite of Naproxen, O-desmethylnaproxen, has been shown to interfere with the Jendrassik-Fred method for measuring total bilirubin. Samples from patients who have taken Naproxen have shown spurious elevation in total bilirubin levels. 37 Because ethnic data is not always readily available, this report includes an eGFR for both -Americans and non- Americans. The National Kidney Disease Education Program (NKDEP) does not endorse the use of the MDRD equation for patients that are not between the ages of 18 and 70, are , have extremes of body size, muscle mass, or nutritional status, or are non- or non-. According to the National Kidney Foundation, irrespective of diagnosis, the stage of the disease is based on the level of kidney function: Stage Description GFR(mL/min/1.73 m(2)) 1 Kidney damage with normal or decreased GFR 90 2 Kidney damage with mild decrease in GFR 60-89 3 Moderate decrease in GFR 30-59 4 Severe decrease in GFR 15-29 5 Kidney failure <15 (or dialysis) 38 CHOLESTEROL INTERPRETATION: Desirable: Less than 200 MG/DL Borderline-High Risk: 200-239 MG/DL High-Risk: 240 MG/DL and over 39 HDL INTERPRETATION: Undesirable: High Risk: Less than 40 MG/DL Desirable: Low Risk: Greater than 60 MG/DL 40 LDL INTERPRETATION: Low Risk Optimal Level: LDL Less than 100 MG/DL Near or Above Optimal: LDL 100-129 MG/DL Borderline High Risk: LDL 130-159 MG/DL High Risk: LDL 160-189 MG/DL Very High Risk: LDL Greater than 189 MG/DL 41 PLEASE NOTE NEW REFERENCE RANGES. 42 CHOLESTEROL INTERPRETATION: Desirable: Less than 200 MG/DL Borderline-High Risk: 200-239 MG/DL High-Risk: 240 MG/DL and over 43 HDL INTERPRETATION: Undesirable: High Risk: Less than 40 MG/DL Desirable: Low Risk: Greater than 60 MG/DL 44 LDL INTERPRETATION: Low Risk Optimal Level: LDL Less than 100 MG/DL Near or Above Optimal: LDL 100-129 MG/DL Borderline High Risk: LDL 130-159 MG/DL High Risk: LDL 160-189 MG/DL Very High Risk: LDL Greater than 189 MG/DL 45 SPECIMEN CONTAINS NORMAL URETHRAL OR PERINEAL TAVON AND DOES NOT SUGGEST URINARY TRACT INFECTION 46 Anion gap measurement may be of limited value in the presence of any alkalosis, especially in a combined acid base disorder. . 47 Note change in reference range as of 07/15/08. The change was based on recommendations from the [place] [employer]. 48 Please note change in reference range effective 08 . 49 CHOLESTEROL INTERPRETATION: Desirable: Less than 200 MG/DL Borderline-High Risk: 200-239 MG/DL High-Risk: 240 MG/DL and over 50 HDL INTERPRETATION: Undesirable: High Risk: Less than 40 MG/DL Desirable: Low Risk: Greater than 60 MG/DL 51 LDL INTERPRETATION: Low Risk Optimal Level: LDL Less than 100 MG/DL Near or Above Optimal: LDL 100-129 MG/DL Borderline High Risk: LDL 130-159 MG/DL High Risk: LDL 160-189 MG/DL Very High Risk: LDL Greater than 189 MG/DL 52 Anion gap measurement may be of limited value in the presence of any alkalosis, especially in a combined acid base disorder. . 53 Note change in reference range as of 07/15/08. The change was based on recommendations from the [place] [employer]. 54 Please note change in reference range effective 08 . 55 Anion gap measurement may be of limited value in the presence of any alkalosis, especially in a combined acid base disorder. . 56 Note change in reference range as of 07/15/08. The change was based on recommendations from the [place] [employer]. 57 Please note change in reference range effective 08 . 58 NOT ON ICE 59 TEST LIMITATIONS: The performance of specimens from pediatric patients has not been evaluated. A positive test confirms the presence of toxins A and/or B only. A physician must use the test results in conjunction with other diagnostic procedures and the patient's clinical condition to establish a diagnosis of C.difficile-associated disease. Isolates of C. sordellii may react with this test due to immunological identitiy of the C. sordellii toxins. Two distinct groups have been identified that can harbor C. difficile asymptomatically at very high rates. Colonization rates of up to 50% and higher have been reported in infants and rates of up to 32% in cystic fibrosis patients. N^NEGATIVE BY IMMUNOASSAY^CDT 60 called pt w/ results -- nl hgb/hct and negative c.diff toxin. pt says her diarrhea is mostly gone, feeling better. 61 FASTING 62 CHOLESTEROL INTERPRETATION: Desirable: Less than 200 MG/DL Borderline-High Risk: 200-239 MG/DL High-Risk: 240 MG/DL and over 63 HDL INTERPRETATION: Undesirable: High Risk: Less than 40 MG/DL Desirable: Low Risk: Greater than 60 MG/DL 64 LDL INTERPRETATION: Low Risk Optimal Level: LDL Less than 100 MG/DL Near or Above Optimal: LDL 100-129 MG/DL Borderline High Risk: LDL 130-159 MG/DL High Risk: LDL 160-189 MG/DL Very High Risk: LDL Greater than 189 MG/DL 65 Anion gap measurement may be of limited value in the presence of any alkalosis, especially in a combined acid base disorder. . 66 CORRECTED RESULT! WRONG RESULT WAS 132 67 PLEASE NOTE NEW REFERENCE RANGES. Procedures Date Code Description Status 01/12/2019 72826 Icd Eval Sing,Dual,Multi Lead Remote Recpt Transm Tech Completed Rev Tech S 01/12/2019 74760 Pacemaker Check Remote Up To 90Days Completed Single,Dual,Multiple Lead 10/13/2018 43729 Icd Eval Sing,Dual,Multi Lead Remote Recpt Transm Tech Completed Rev Tech S 10/13/2018 80584 Icd Eval Sing,Dual,Multi Lead Remote Recpt Transm Tech Completed Rev Tech S 10/13/2018 67859 Pacemaker Check Remote Up To 90Days Completed Single,Dual,Multiple Lead 10/13/2018 26804 Pacemaker Check Remote Up To 90Days Completed Single,Dual,Multiple Lead 07/24/2018 25290 Pace Maker Eval W/Iterative Adjment Dual Lead Completed 07/14/2018 02301 Icd Eval Sing,Dual,Multi Lead Remote Recpt Transm Tech Completed Rev Tech S 07/14/2018 55169 Pacemaker Check Remote Up To 90Days Completed Single,Dual,Multiple Lead 06/09/2018 61501 EKG Tracing & Interpretation Completed 03/04/2018 78768 Pace Maker Eval W/Iterative Adjment Dual Lead Completed 03/04/2018 70488 Pace Maker Eval W/Iterative Adjment Dual Lead Completed 12/24/2017 57389 EKG Tracing & Interpretation Completed 12/20/2017 87832 Pace Maker Eval W/Iterative Adjment Dual Lead Completed 12/20/2017 41939 Pace Maker Eval W/Iterative Adjment Dual Lead Completed 12/04/2017 52981 ECHO Transthoracic, Real-Time 2D With Doppler And Completed Color Flow 12/04/2017 03469 ECHO Transthoracic, Real-Time 2D With Doppler And Completed Color Flow 10/02/2017 18802 EKG Tracing & Interpretation Completed 06/25/2017 68837 Pace Maker Eval W/Iterative Adjment Dual Lead Completed 01/08/2017 90110 EKG Tracing & Interpretation Completed 01/04/2017 08417 Pace Maker Eval W/Iterative Adjment Dual Lead Completed 09/25/2016 30666 Icd Check Single,Dual Or Multiple In Person W/DR Incl Completed Heart Rhyth 09/20/2016 42904 ECHO Transthoracic, Real-Time 2D With Doppler And Completed Color Flow 09/19/2016 58487 Icd Eval With Inerative Adjustmt Dual Lead System Completed 09/11/2016 55712 EKG Tracing & Interpretation Completed 08/20/2016 67720 Icd Eval With Inerative Adjustmt Dual Lead System Completed 06/19/2016 06445 Icd Eval With Inerative Adjustmt Dual Lead System Completed 03/26/2016 15854 Icd Eval Sing,Dual,Multi Lead Remote Recpt Transm Tech Completed Rev Tech S 03/26/2016 63661 Icd Check Remote Up To 90 Days Single,Dual,Multiple Completed Lead 01/18/2016 90488 EKG Tracing & Interpretation Completed 12/01/2015 17459 Icd Check Single,Dual Or Multiple In Person W/DR Incl Completed Heart Rhyth 09/02/2015 41779 EKG Tracing & Interpretation Completed 09/02/2015 54890 EKG Tracing & Interpretation Completed 08/21/2015 35173 Icd Eval Sing,Dual,Multi Lead Remote Recpt Transm Tech Completed Rev Tech S 08/21/2015 48151 Icd Check Remote Up To 90 Days Single,Dual,Multiple Completed Lead 04/28/2015 73889 ECHO Transthoracic, Real-Time 2D With Doppler And Completed Color Flow 04/11/2015 52130 EKG Tracing & Interpretation Completed 04/04/2015 93396 Icd Check Single,Dual Or Multiple In Person W/DR Incl Completed Heart Rhyth 11/01/2014 40156 Icd Check Single,Dual Or Multiple In Person W/DR Incl Completed Heart Rhyth 08/17/2014 22254 EKG Tracing & Interpretation Completed 03/05/2014 73121 Icd Check Single,Dual Or Multiple In Person W/DR Incl Completed Heart Rhyth 12/08/2013 30036 Icd Eval With Inerative Adjustmt Dual Lead System Completed 08/27/2013 58588 Ep Eval Icd AT Implant Completed 08/27/2013 85206 Removal Dual Lead Pacing Cardioverter-Defibrillator Completed W/Replacmt 08/12/2013 81302 Icd Check Single,Dual Or Multiple In Person W/DR Incl Completed Heart Rhyth 08/12/2013 82989 Icd Check Single,Dual Or Multiple In Person W/DR Incl Completed Heart Rhyth 07/07/2013 81040 Icd Eval Sing,Dual,Multi Lead Remote Recpt Transm Tech Completed Rev Tech S 07/07/2013 18605 Icd Check Remote Up To 90 Days Single,Dual,Multiple Completed Lead 06/08/2013 75817 Icd Eval Sing,Dual,Multi Lead Remote Recpt Transm Tech Completed Rev Tech S 04/29/2013 59458 EKG Tracing & Interpretation Completed 02/09/2013 90415 Interrogation Device Eval In Person W/DR Completed Analysis,Single,Dual,Mul 02/09/2013 25376 Interrogation Device Eval In Person W/DR Completed Analysis,Single,Dual,Mul 01/13/2013 15764 Icd Check Single,Dual Or Multiple In Person W/DR Incl Completed Heart Rhyth 01/13/2013 15332 Icd Check Single,Dual Or Multiple In Person W/DR Incl Completed Heart Rhyth 12/11/2012 [id number] Bone Mineral Density Test Completed 10/09/2012 22854 Icd Check Single,Dual Or Multiple In Person W/DR Incl Completed Heart Rhyth 09/26/2012 28881 ECHO Transthoracic, Real-Time 2D With Doppler And Completed Color Flow 08/13/2012 74082 Icd Eval Sing,Dual,Multi Lead Remote Recpt Transm Tech Completed Rev Tech S 08/13/2012 89562 Icd Check Remote Up To 90 Days Single,Dual,Multiple Completed Lead 07/10/2012 53487 Icd Check Single,Dual Or Multiple In Person W/DR Incl Completed Heart Rhyth 06/27/2012 95640 EKG Tracing & Interpretation Completed 05/14/2012 11740 Icd Eval Sing,Dual,Multi Lead Remote Recpt Transm Tech Completed Rev Tech S 05/14/2012 71279 Icd Check Remote Up To 90 Days Single,Dual,Multiple Completed Lead 12/13/2011 63047 Icd Check Single,Dual Or Multiple In Person W/DR Incl Completed Heart Rhyth 10/04/2011 87759 Icd Eval Sing,Dual,Multi Lead Remote Recpt Transm Tech Completed Rev Tech S 10/04/2011 94484 Icd Check Remote Up To 90 Days Single,Dual,Multiple Completed Lead 08/15/2011 62747 Icd Check Remote Up To 90 Days Single,Dual,Multiple Completed Lead 08/15/2011 27758 Icd Eval Sing,Dual,Multi Lead Remote Recpt Transm Tech Completed Rev Tech S 06/13/2011 56505 EKG Tracing & Interpretation Completed 05/30/2011 88546 Icd Eval With Inerative Adjustmt Dual Lead System Completed 04/11/2011 40772 Icd Eval Sing,Dual,Multi Lead Remote Recpt Transm Tech Completed Rev Tech S 04/11/2011 00064 Icd Check Remote Up To 90 Days Single,Dual,Multiple Completed Lead 02/07/2011 35485 Icd Eval Sing,Dual,Multi Lead Remote Recpt Transm Tech Completed Rev Tech S 02/07/2011 91664 Icd Check Remote Up To 90 Days Single,Dual,Multiple Completed Lead 12/14/2010 49047 Icd Eval With Inerative Adjustmt Dual Lead System Completed 11/16/2010 [id number] Mammogram Completed 10/02/2010 10221 Icd Eval Sing,Dual,Multi Lead Remote Recpt Transm Tech Completed Rev Tech S 10/02/2010 56253 Icd Check Remote Up To 90 Days Single,Dual,Multiple Completed Lead 08/02/2010 47339 Icd Eval Sing,Dual,Multi Lead Remote Recpt Transm Tech Completed Rev Tech S 08/02/2010 00800 Icd Check Remote Up To 90 Days Single,Dual,Multiple Completed Lead 06/06/2010 49305 Icd Check Single,Dual Or Multiple In Person W/DR Incl Completed Heart Rhyth 04/21/2010 02027 EKG Tracing & Interpretation Completed 04/12/2010 03209 Icd Eval Sing,Dual,Multi Lead Remote Recpt Transm Tech Completed Rev Tech S 04/12/2010 22265 Icd Check Remote Up To 90 Days Single,Dual,Multiple Completed Lead 02/14/2010 [id number] Diabetic Retinal Eye Exam Completed 02/08/2010 01047 Icd Eval Sing,Dual,Multi Lead Remote Recpt Transm Tech Completed Rev Tech S 02/08/2010 78303 Icd Check Remote Up To 90 Days Single,Dual,Multiple Completed Lead 12/15/2009 78865 Icd Check Single,Dual Or Multiple In Person W/DR Incl Completed Heart Rhyth 10/05/2009 89094 Icd Eval Sing,Dual,Multi Lead Remote Recpt Transm Tech Completed Rev Tech S 10/05/2009 91936 Icd Check Remote Up To 90 Days Single,Dual,Multiple Completed Lead 08/24/2009 [id number] Mammogram Completed 08/12/2009 23157 Icd Check Single,Dual Or Multiple In Person W/DR Incl Completed Heart Rhyth 08/10/2009 30597 Icd Eval Sing,Dual,Multi Lead Remote Recpt Transm Tech Completed Rev Tech S 08/10/2009 96136 Icd Check Remote Up To 90 Days Single,Dual,Multiple Completed Lead 06/09/2009 85728 Icd Eval With Inerative Adjustmt Dual Lead System Completed 04/25/2009 49513 ECHO Transthoracic, Real-Time 2D With Doppler And Completed Color Flow 04/13/2009 79679 Icd Eval Sing,Dual,Multi Lead Remote Recpt Transm Tech Completed Rev Tech S 04/13/2009 23358 Icd Check Remote Up To 90 Days Single,Dual,Multiple Completed Lead 02/09/2009 43315 Icd Eval Sing,Dual,Multi Lead Remote Recpt Transm Tech Completed Rev Tech S 02/09/2009 37344 Icd Check Remote Up To 90 Days Single,Dual,Multiple Completed Lead 12/09/2008 82414 Analysis Aicd DC W/Reprogramming Completed 12/09/2008 84989 Icd Eval With Inerative Adjustmt Dual Lead System Completed 12/03/2008 89268 EKG Tracing & Interpretation Completed 11/03/2008 81519 Analysis Aicd DC W/Out Reprogramg Completed 10/06/2008 06571 Analysis Aicd DC W/Out Reprogramg Completed 10/06/2008 54456 Analysis Aicd DC W/Out Reprogramg Completed 10/04/2008 57544 EKG Tracing & Interpretation Completed 10/04/2008 50529 EKG Tracing & Interpretation Completed 09/16/2008 91362 Analysis Aicd DC W/Reprogramming Completed 09/16/2008 57325 Analysis Aicd DC W/Reprogramming Completed 07/28/2008 45216 Analysis Aicd DC W/Reprogramming Completed 07/28/2008 35117 Analysis Aicd DC W/Reprogramming Completed 07/28/2008 30643 Analysis Aicd DC W/Reprogramming Completed 07/14/2008 09251 Analysis Aicd DC W/Out Reprogramg Completed 07/14/2008 23401 Analysis Aicd DC W/Out Reprogramg Completed 05/13/2008 51345 Analysis Aicd DC W/Out Reprogramg Completed 05/11/2008 03845 EKG Tracing & Interpretation Completed 03/10/2008 05781 Analysis Aicd DC W/Out Reprogramg Completed 01/09/2008 13382 Analysis Aicd DC W/Reprogramming Completed 01/09/2008 80232 EKG Tracing & Interpretation Completed 01/09/2008 16460 EKG Tracing & Interpretation Completed 11/19/2007 27289 EKG Tracing & Interpretation Completed 11/19/2007 34592 EKG Tracing & Interpretation Completed 11/13/2007 39648 Analysis Aicd DC W/Reprogramming Completed 11/13/2007 78900 Analysis Aicd DC W/Reprogramming Completed 11/13/2007 42078 Analysis Aicd DC W/Reprogramming Completed 08/15/2007 16501 EKG Tracing & Interpretation Completed 08/15/2007 83812 EKG Tracing & Interpretation Completed 07/25/2007 94033 Analysis Aicd DC W/Reprogramming Completed 06/20/2007 90478 Selective Coronary Angioplasty Completed 06/20/2007 23654 S/I/R Inj Proc Vent And Or Atrial Completed 06/20/2007 13920 S/I/R Inj Proc Vent And Or Atrial Completed 06/20/2007 84110 Coronary Angiography Completed 06/20/2007 41093 Com RT And LT Catheterization Completed 06/20/2007 99404 Inj Proc LFT Vent/LFT Atrl Angio Completed 06/20/2007 75182 Inj Proc LFT Vent/LFT Atrl Angio Completed 06/16/2007 89247 EKG Tracing & Interpretation Completed 06/10/2007 78338 EKG Tracing & Interpretation Completed 06/10/2007 87831 EKG Tracing & Interpretation Completed 06/02/2007 91550 Event Monitor/Phys Review/Interp. Completed 06/02/2007 76144 Cardiac Event Monitor/Recording Completed 06/02/2007 35413 Cardiac Event Monitor/Recording Completed 04/29/2007 10573 Color Flow Doppler/Interp & Reprt Completed 04/29/2007 71038 Echocardiography, Transesophageal, Real Time W/Image Completed 2D W/W/O M-M 04/29/2007 91562 Color Flow Doppler/Interp & Reprt Completed 04/23/2007 98919 Holter Monitor Completed 04/15/2007 14188 Treadmill Interp/Report Only Completed 04/15/2007 09721 Stress Test Supervsn W/Out I/R Completed 04/15/2007 34296 Stress Test Supervsn W/Out I/R Completed 04/14/2007 86070 Pulse Doppler & Continuous Wave Completed 04/14/2007 10462 Echocardiogram Completed 04/14/2007 49998 Echocardiogram Completed 04/14/2007 28912 Color Doppler Completed 04/14/2007 92658 Color Doppler Completed 04/11/2007 58486 ECHO/Stress Completed 04/11/2007 70948 Stress Test Completed 04/11/2007 83260 Stress Test Completed 10/05/2004 25939 Holter Monitor Completed 10/03/2004 47747 ECHO/Stress Completed 10/03/2004 04107 Stress Test Completed Encounters Type Date Location Provider Dx Diagnosis Office Visit 01/14/2019 [facility] Serenity Parnell, I49.5 Sick sinus 11:00a N.P. syndrome Z95.0 Presence of cardiac pacemaker I42.9 Cardiomyopathy, unspecified I34.0 Nonrheumatic mitral (valve) insufficiency H53.2 Diplopia Office Visit 06/09/2018 11:20a [facility] Jayden Ceron I49.5 Sick sinus Mora Mann syndrome I42.9 Cardiomyopathy, unspecified I34.0 Nonrheumatic mitral (valve) insufficiency I47.2 Ventricular tachycardia Office Visit 12/24/2017 [facility] Jayden Ceron I42.9 Cardiomyopathy, 10:40a [facility] Mora Mann unspecified I48.3 Typical atrial flutter I34.0 Nonrheumatic mitral (valve) insufficiency I47.2 Ventricular tachycardia I49.5 Sick sinus syndrome R94.31 Abnormal electrocardiogram [ECG] [EKG] Office Visit 11/01/2017 1:45p [facility] M76.821 [facility] [place] tendinitis, C.M.A. leg Office Visit 10/02/2017 1:10p Carrington Ceron I49.5 Sick sinus Cardiology Mora Mann syndrome I42.9 Cardiomyopathy, unspecified Z95.0 Presence of cardiac pacemaker I48.3 Typical atrial flutter R06.00 Dyspnea, unspecified I34.0 Nonrheumatic mitral (valve) insufficiency I47.2 Ventricular tachycardia R07.89 Other chest pain Office Visit 07/05/2017 10:15a [facility] M76.821 [facility], right C.M.A. leg Office Visit 05/03/2017 2:00p [facility] Fa[facility]o [id number] [facility] [place], right C.M.A. leg Office Visit 01/08/2017 2:20p Carrington Ceron I49.5 Sick sinus Cardiology Mora Mann syndrome I48.3 Typical atrial flutter I42.9 Cardiomyopathy, unspecified Office Visit 09/11/2016 1:20p [facility] Jayden Ceron I49.5 Sick sinus Mora Mann syndrome Z95.810 Presence of automatic (implantable) cardiac defibrillator I48.3 Typical atrial flutter Office Visit 02/08/2016 [facility] [id number] Posterior tibial 2:20p [facility] [place], right C.M.A. leg Office Visit 01/18/2016 [facility] Ceron Z95.810 Presence of 1:40p Cardiology [place] Mann automatic (implantable) cardiac defibrillator I48.3 Typical atrial flutter I42.9 Cardiomyopathy, unspecified I49.5 Sick sinus syndrome I34.0 Nonrheumatic mitral (valve) insufficiency Office Visit 09/02/2015 10:30a Kimmy Underwood, I42.9 Cardiomyopathy, [facility] [place] unspecified Meatcutter I48.3 Typical atrial flutter I49.5 Sick sinus syndrome Z95.810 Presence of automatic (implantable) cardiac defibrillator Office Visit 04/11/2015 [facility] Ceron 425.9 Cardiomyopathy 10:40a Cardiology [facility] Mann Secondary Unspecified 427.1 Paroxysmal Ventricular Tachycardia 427.81 Sinoatrial Node Dysfunction Office Visit 08/17/2014 3:40p [facility] Jayden Ceron 427.1 Paroxysmal Mora Mann Ventricular Tachycardia V45.02 Cardiac Defibrillator Automatic Implantable Postsurgical 427.81 Sinoatrial Node Dysfunction 424.0 Mitral Valve Disorder 425.9 Cardiomyopathy Secondary Unspecified Office Visit 08/21/2013 3:00p Kimmy Reardon 425.9 Cardiomyopathy Cardiology Sunny Ni M.D. Secondary Meatcutter Unspecified V45.02 Cardiac Defibrillator Automatic Implantable Postsurgical 427.1 Paroxysmal Ventricular Tachycardia Office Visit 04/29/2013 10:00a [facility] Jayden FMariel 424.0 Mitral Valve Mora Mann Disorder V45.02 Cardiac Defibrillator Automatic Implantable Postsurgical 427.81 Sinoatrial Node Dysfunction 425.9 Cardiomyopathy Secondary Unspecified Office Visit 06/27/2012 9:50a [facility] Jayden FMariel 427.81 Sinoatrial Node Juani MnanDMariel Dysfunction V45.02 Cardiac Defibrillator Automatic Implantable Postsurgical 427.1 Paroxysmal Ventricular Tachycardia Office Visit 06/13/2011 9:40a [facility] Jayden Ceron 427.1 Paroxysmal Mora Mann Ventricular Tachycardia V45.02 Cardiac Defibrillator Automatic Implantable Postsurgical 424.0 Mitral Valve Disorder Office Visit 09/07/2010 10:40a DO Not Use Meatcutter AT Arvin Reardon 088.81 Lyme Disease Raul Lambert M.D.,FACP 784.92 Jaw Pain 232.3 Carcinoma Skin Face Unspec Office Visit 04/21/2010 11:20a [facility] Jayden Ceron 427.1 Paroxysmal Mora Mann Ventricular Tachycardia V45.02 Cardiac Defibrillator Automatic Implantable Postsurgical 244.8 Hypothyroidism Other Spec 424.0 Mitral Valve Disorder Office Visit 02/23/2010 DO Not Use Meatcutter Arvin Reardon V72.81 Examination 10:40a AT Raul Lambert M.D.,FAC Preoperative Cardiovascular 366.04 Cataract Nuclear 244.8 Hypothyroidism Other Spec 715.04 Osteoarthrosis Generalized Hand Office Visit 08/11/2009 10:00a DO Not Use Meatcutter Arvin Reardon 427.1 Paroxysmal AT Raul Lambert M.D.,FACP Ventricular Tachycardia 244.8 Hypothyroidism Other Spec 380.4 Impacted Cerumen V76.10 Screening For Malignant Neoplasm Breast Office Visit 07/14/2009 1:40p DO Not Use Meatcutter Shannon, 380.4 Impacted Cerumen AT Eurekapramod Lawrence M.D. Office Visit 05/10/2009 11:40a DO Not Use Meatcutter Arvin Lambert, 599.0 UTI Urinary AT Eurekapramod Velazco,[facility] Tract Infection Site Not Spec 389.10 Hearing Loss Sensorineural Unspec Office Visit 03/16/2009 11:00a [facility] Jayden Ceron 427.1 Joey Mann M.D. Ventricular Tachycardia V45.02 Cardiac Defibrillator Automatic Implantable Postsurgical 386.19 Vertigo Aural & Otogenic Other 427.81 Sinoatrial Node Dysfunction Office Visit 12/17/2008 3:40p DO Not Use Meatcutter Arvin Reardon 386.19 Vertigo Aural & AT Raul Lambert M.D.,[facility] Otogenic Other Office Visit 12/09/2008 2:20p [facility] Remote Device 427.1 Paroxysmal Cardiology Checks Ventricular Tachycardia V45.02 Cardiac Defibrillator Automatic Implantable Postsurgical 427.81 Sinoatrial Node Dysfunction 780.4 Dizziness & Giddiness Office Visit 12/03/2008 2:00p [facility] Jayden Ceron 427.1 Paroxysmal Mora Mann Ventricular Tachycardia V45.02 Cardiac Defibrillator Automatic Implantable Postsurgical 427.81 Sinoatrial Node Dysfunction 780.4 Dizziness & Giddiness Office Visit 10/04/2008 1:20p [facility] Jayden Ceron 427.1 Paroxysmal Mora Mann Ventricular Tachycardia V45.02 Cardiac Defibrillator Automatic Implantable Postsurgical 427.81 Sinoatrial Node Dysfunction 786.50 Pain Chest Unspec Office Visit 08/09/2008 11:30a DO Not Use Meatcutter Matty, 461.1 Sinusitis Acute AT Raul Porter M.D. Frontal 788.41 Urinary Frequency Office Visit 06/23/2008 11:30a DO Not Use Meatcutter AT Charlotte Starr, 787.91 Diarrhea [facility] Mora 786.50 Pain Chest Unspec Office Visit 06/10/2008 11:20a DO Not Use Meatcutter Arvin Reardon 461.1 Sinusitis Acute AT Raul Lambert M.D.,[facility] Frontal Office Visit 05/26/2008 9:30a DO Not Use Meatcutter Dionne Ford,P 454.9 Varicose Veins AT [facility] A Lower Extrem Asymptomatic Varicose Veins Office Visit 05/11/2008 2:20p [place] Ceron 427.1 Paroxysmal Cardiology Mackenzie MMarielDMariel Ventricular Tachycardia V45.02 Cardiac Defibrillator Automatic Implantable Postsurgical 424.0 Mitral Valve Disorder Office Visit 03/18/2008 10:00a DO Not Use Meatcutter Dionne Ford PA 477.9 Rhinitis AT [facility] Allergic Cause Unspec 427.1 Paroxysmal Ventricular Tachycardia 244.9 Hypothyroidism Other Unspec 272.2 Hyperlipidemia Mixed V45.02 Cardiac Defibrillator Automatic Implantable Postsurgical V45.01 Cardiac Pacemaker In Situ Postsurgical Office Visit 02/25/2008 10:20a DO Not Use Meatcutter Arvin Reardon 427.1 Paroxysmal AT [facility] Mora Lambert,FACP Ventricular Tachycardia 733.90 Bone & Cartilage Disorder Unspec 244.9 Hypothyroidism Other Unspec 272.2 Hyperlipidemia Mixed Office Visit 01/09/2008 3:20p [facility] Jayden Ceron 427.1 Paroxysmal Mackenzie MMarielDMariel Ventricular Tachycardia 427.81 Sinoatrial Node Dysfunction 424.0 Mitral Valve Disorder 786.09 Dyspnea & Respiratory Abnormalities Other 780.4 Dizziness & Giddiness V45.02 Cardiac Defibrillator Automatic Implantable Postsurgical Office Visit 11/19/2007 2:40p [facility] Jayden Ceron 427.1 Paroxysmal Mauser, M.D. Ventricular Tachycardia 427.81 Sinoatrial Node Dysfunction V45.02 Cardiac Defibrillator Automatic Implantable Postsurgical 424.0 Mitral Valve Disorder Office Visit 09/25/2007 9:00a [facility] Jayden Ceron 427.1 Paroxysmal Mauser, M.D. Ventricular Tachycardia 427.81 Sinoatrial Node Dysfunction 424.0 Mitral Valve Disorder V45.01 Cardiac Pacemaker In Situ Postsurgical Office Visit 08/15/2007 10:20a [facility] Jayden Ceron 427.1 Paroxysmal Mauser, M.D. Ventricular Tachycardia 785.0 Tachycardia Unspec 427.81 Sinoatrial Node Dysfunction 424.0 Mitral Valve Disorder Office Visit 07/25/2007 9:20a [facility] Jayden Ceron 785.0 Tachycardia Cedr M.D. Unspec 427.1 Paroxysmal Ventricular Tachycardia 427.81 Sinoatrial Node Dysfunction 440.0 Atherosclerosis Aorta V45.01 Cardiac Pacemaker In Situ Postsurgical Office Visit 06/27/2007 2:00p [facility] Jayden Ceron 785.0 Tachycardia Mora Mann Unspec 427.1 Paroxysmal Ventricular Tachycardia Office Visit 06/16/2007 2:00p [facility] Jayden Ceron 785.0 Tachycardia Mora Mann Unspec 424.0 Mitral Valve Disorder 785.1 Palpitations Office Visit 06/10/2007 [place] Cotton 427.81 Sinoatrial Node 10:20a Cardiology Mora Lubin Dysfunction 424.0 Mitral Valve Disorder 794.31 Electrocardiogram (ECG) (EKG) Abnormal 785.0 Tachycardia Unspec Office Visit 06/02/2007 11:00a [facility] Jayden Ceron 427.81 Sinoatrial Node Mora Mann Dysfunction 424.0 Mitral Valve Disorder 440.0 Atherosclerosis Aorta Office Visit 04/11/2007 8:30a [facility] Jayden Ceron 427.Rosita Sinoatrial Node Mora Mann Dysfunction 786.50 Pain Chest Unspec 786.09 Dyspnea & Respiratory Abnormalities Other 424.0 Mitral Valve Disorder Plan of Treatment Future Appointment(s):03/30/2019 9:20 am - Jayden Mann M.D. at [facility]02/05/2019 1:30 pm - Nurse Visit cc at [facility]02/04/2019 3 :00 pm - Nurse Visit cc at [facility]04/13/2019 6:20 am - Remote Device Checks at [facility]01/14/2019 - Serenity Parnell N.P.I49.5 Sick sinus itumxemeB28.0 Presence of cardiac [id number] Cardiomyopathy, sbbbkbjnopmP16.0 Nonrheumatic mitral (valve) [id number] DiplopiaNew Orders:Holter Monitor, Scheduled: 02/04/19Follow up:03/2019 JFMRecommendations :Purchase BP cuff (Omron) check BP 1-2x daily Bring in cuff and pressure when you have holter put on to make sure it is accurate.
--- OUTSIDE RECORDS SUMMARY | 2019-01-15 23:34 | XMS REPORT | Continuity of Care Document ---
:1935 External Reference #:[id number] Author Name Dana Finch Care Team Providers Name Role Phone Suman Kong MD Primary Care Physician Unavailable Payers Date Identification Numbers Payment Provider Subscriber Policy Number: [id number] [employer] Leeann Espinoza PayID: [id number] [address] [address] Attn: [place] [address] Advance Directives Description No Information Available Problems [...] with three dogs Occupation Retired Clinical social research assistant Tobacco Use Start: Unknown End: Former Cigarette Smoker Unknown Smoking Status Reviewed: 06/09/18 Former Cigarette Smoker ETOH Use Consumes 1 glass of wine per day Tobacco Use Start: Unknown End: Patient is a former Unknown smoker Exercise Type/Frequency Exercises regularly Exercise Type/Frequency Walks daily Allergies, Adverse Reactions, Alerts Date Description Reaction Status Severity Comments 04/11/2007 Sulfa Active hives 02/23/2010 Tape Active paper tape Medications Medication Date Status Form Strength Qnty SIG Indications Ordering Provider Aspirin Adult 01/08 Active Tablets 81mg 1 by mouth I49.5 Jayden Low Dose /2016 every day Jie Mann M.D. Levoxyl 04/10 Active Tablets 112mcg 1 by mouth Arvin /2014 every day Caron Lambert M.D.,FACP Vitamin D 08/17 Active Capsules 400Unit 1 by mouth Jayden /2013 every day Jie (winter time Mackenzie, only) Mora Zyrtec 03/18 Active 10mg 30uni 1 qd prn 477.9 Arvin ghada Lambert M.D.,FACP Vitamin B12 Active Tablets 500mcg 1 po 2x week Unknown /0000 ER Tylenol 00 Active 650 1 to 2 every 8 Unknown /0000 hrs prn pain (rarely uses) Co Q10 Maximum 0000 Active Capsules 200mg 1 po daily Unknown Strength /0000 Xarelto 09/02 Hx Tablets 20mg 90tab 1 by mouth I49.5 Jayden teddy every katty Mann 01/08 Mora Levoxyl 08/17 Hx Tablets 125mcg 1 by mouth Arvin every day Cristiana Adkins M.D.,FACP 04/10 Doxycycline 09/07 Hx Tablets 100mg 14tab po bid 088.81 Arvin Monohydrate Cristiana Mcdonald M.D.,FACP 06/13 Digoxin 06/21 Hx Tablets 0.25mg 30tab 1 po qd teddy Mann 06/28 Mora Vitamin D 02/23 Hx Capsules 400Unit 60cap 1 po qd Cristiana Mcdonald M.D.,[facility] 06/13 Calcium 600-D 02/23 Hx Tablets 600-400mg 60tab 1 po bid -Unit Cristiana Mcdonald M.D.,[facility] 08/16 Voltaren Gel 02/23 Hx 1% 4Tube 2 gm topical r 715.04 s thumb bid prn Cristiana Adkins M.D.,[facility] 04/21 Cipro 05/10 Hx Tablets 500mg 20tab 1 po bid Cristiana Mcdonald M.D.,[facility] 08/11 Meclizine HCL 12/17 Hx Tablets 25mg 30tab 1 po tid prn 386.19 Cristiana Mcdonald M.D.,[facility] 03/16 Amoxicillin 08/09 Hx Tablets 875mg 20tab 1 tab po bid x 461.1 s 10 DCharlotte Floyd - M.D. 10/04 Cefaclor 07/09 Hx Capsules 500mg 14cap PO bid 461.1 Cristiana Mcdonald M.D.,[facility] 07/09 Keflex 07/09 Hx Capsules 500mg 21cap 1 po tid 461.1 s x7days Cristiana Adkins M.D.,[facility] 10/04 Pyridium 07/07 Hx Tablets 100mg 12tab 1 Q 8 Hours s prn Cristiana Adkins M.D.,[facility] 12/03 Amoxicillin 06/10 Hx Tablets 500mg 40tab 2 tabs po bid 461.1 s for 10 days Cristiana Adkins M.D.,[facility] 07/09 Aspir-81 03/17 Hx Tablets 81mg 30tab [address] PO qd [address] teddy Mann, 09/02 Mora /2014 Ciprofloxacin 06/16 Hx Tablets day 10, for Jayden HCL /2006 kartik Mann, 06/27 Mora /2006 Levoxyl 06/02 Hx Tablets 112mcg 90tab 1 PO qd Arvin /Cristiana John M.D.,FACP 08/17 Supplements 06/02 Hx Jayden /2006 Jie Mann, 06/13 M.DMariel /2010 Ibuprofen /00 Hx Capsules 200mg 1 prn Unknown / - 12/03 Sudafed Hx Tablets 1 prn Unknown / ER 12HR - 01/07 Magnesium Hx Capsules 1 po qd Unknown - 08/16 Bone Strength Hx 2 po qd Unknown / - 01/07 Miralax Hx Packet [id number] 1mon 17 gm qd prn Unknown / - 04/29 Co Q-10 Hx Capsules 200mg 1 po qd Unknown - 04/10 Cephalexin Hx Capsules 500mg 1 Cap po tid x Brand, 3 days Cristiana Trammell MD 08/16 Metoprolol Hx Tablets 25mg 90tab 1 by mouth Jayden Tartrate /0000 s every day Jie Mann, 10/14 M.DMareil /2015 Tumeric Hx 1 tablet daily - 01/07 Estrace Hx Cream 0.1mg/GM use one Unknown applicatorful - two times 12/23 Immunizations Description No Information Available Vital Signs Date Vital Result Comment 06/09/2018 12:01pm Height 61 inches 5'1" Weight [...] Date Facility Test Result H/L Range Note Comp Metabolic Panel 12/05/2018 [facility] Sodium 139 mmol/L N 135-[address] [place] [address] [phone] Potassium 4.5 mmol/L N 3.5-5.0 Chloride 105 [...] Egfr Non- 69.7 >60 Egfr 84.3 >60 1 CBC Auto Diff 12/05/2018 [facility] White Blood 6.5 10^3/uL N 3.5-10.[address] [place] [address] [phone] Red Blood Count 4.32 10^6/uL N 4.00-5.40 [...] % Nucleated Red Blood Cells % 0 Laboratory test 12/05/2018 [facility] Vitamin B12 655 pg/mL N 180-914 2 finding [address] [place] [address] [phone] Order 09/20/2016 [facility] Echocardiogram <pending > [address] [place] [address] [phone] Lipid Panel - 02/06/2016 [facility] Creatine Kinase(CK) 27 U/L N 10-223 3 JFM [address] [place] [address] [phone] Comp Metabolic 02/06/2016 [facility] Sodium 139 N 133-145 Panel 101 [facility] mmol/[place] [address] [phone] Potassium 4.8 mmol/L N 3.5-5.0 Chloride 104 [...] 103.8 N >60 4 Laboratory test 02/06/2016 [facility] Magnesium 2.1 mg/dL N 1.9-2.7 [address] [place] [address] [phone] TSH (Thyroid Stim Horm) 3.07 ?IU/mL N 0.34-5.60 6 CBC Auto Diff 02/06/2016 [facility] White Blood 4.7 10^3/uL N 3.5-10.[address] [place] [address] [phone] Red Blood Count 4.36 10^6/uL N 4.0-5.4 [...] Nucleated Red Blood Cells % 0.1 N CBC Auto Diff 08/29/2015 [facility] White Blood 5.9 10^3/uL N 4.8-10.[address] [place] [address] [phone] Red Blood Count 4.40 10^6/uL N 4.0-5.4 [...] Blood Cells % 0 N Inr/Protime 08/29/2015 [facility] Inr 0.88 N 0.78-1.07 [address] [place] [address] [phone] Comp Metabolic Panel 08/29/2015 [facility] Sodium 138 mmol/L N 133-145 [address] [place] [address] [phone] Potassium 4.4 mmol/L N 3.5-5.0 Chloride 106 [...] 99.2 N >60 7 Laboratory test 08/29/2015 [facility] Magnesium 2.1 mg/dL N 1.9-2.[address] [place] [address] [phone] Troponin-I (TnI) 0.00 ng/mL N <0.03 8 B-Type Natriuretic Peptide BNP 177 pg/mL High 9 CBC Auto Diff 10/12/2014 [facility] White Blood 8.3 10^3/uL N 4.8-10.[address] [place] [address] [phone] Red Blood Count 4.42 10^6/uL N 4.0-5.4 [...] % 0 N Comp Metabolic Panel 10/12/2014 [facility] Sodium 137 mmol/L N 133-145 [address] [place] [address] [phone] Potassium 4.1 mmol/L N 3.5-5.0 10 Chloride [...] N >60 11 Laboratory test finding 10/12/2014 [facility] Lipase 52 U/L N 11.0-82.0 [place] [address] [phone] Troponin I 0.00 ng/mL N <0.03 12 C Reactive Protein 7.61 mg/L High < 5.00 13 Laboratory test 09/20/2014 [facility] Free T4 1.22 ng/mL High 0.61-1.12 finding [address] [place] [address] [phone] TSH (Thyroid Stimulating Horm) 0.57 IU/mL N 0.34-5.60 Laboratory test 03/22/2014 [facility] Troponin I 0.00 ng/mL N <0.03 14 [place] [address] [phone] CBC Auto Diff 03/22/2014 [facility] White Blood 4.9 N 4.8- 10.8 [facility] Count 10^3/[place] [address] [phone] Red Blood Count 4.13 10^6/uL N 4.0-5.4 [...] Nucleated RBC 0 10^3/uL N Inr/Protime 03/22/2014 [facility] Inr 0.80 Low 0.85-1.[address] [place] [address] [phone] Laboratory test 03/22/2014 [facility] Activated 28.6 N 24.0- 36.[address] [place] [address] Thrombo Time [phone] D Dimer Quantitative < 200 ng/mL N Less Than 230 15 B Type Natriuretic Peptide 122 pg/mL N 16 Comp Metabolic Panel 03/22/2014 [facility] Sodium 136 mmol/L N 133-[address] [place] [address] [phone] Potassium 4.2 mmol/L N 3.7-5.6 Chloride 104 [...] 102.7 N >60 17 Laboratory test 03/22/2014 [facility] Creatine Kinase 47 U/L N 10-[address] [place] [address] [phone] CKMB 03/22/2014 [facility] CKMB ng/mL 3.4 N 0.6-6.[address] ng/[place] [address] [phone] Laboratory test 03/22/2014 [facility] Troponin I 0.00 N <0.03 18 finding [address] [facility] ng/mL [place], [place] [phone] Manual 03/22/2014 [facility] Neutrophil % 42 % N 38-[address] [place], [place] [address] [phone] Lymphocytes % 45 % N 25-47 Monocytes % 5 % N 0-13 Eosinophils % 5 % N 0-6 Basophil % 3 % High 0-2 RBC Morphology Normal N Normal Laboratory test 03/22/2014 [facility] TSH (Thyroid 7.03 High 0.34-5.[address] Stimulating IU/[place] [address] Horm) [phone] Pathologist Review (SEE NOTE) N 19 Comp Metabolic Panel 01/25/2014 [facility] Sodium 139 mmol/L 133-[address] [place] [address] [phone] Potassium 4.5 mmol/L 3.7-5.6 Chloride 105 mmol/L [...] Egfr 106.1 >60 20 Lipid Profile 01/25/2014 [facility] Triglycerides 60 mg/dL 21 (Trig/Chol/HDL) [address] [place] [address] [phone] Cholesterol 168 mg/dL 22 HDL Cholesterol 73.7 mg/dL 23 LDL Cholesterol 82 mg/dL 24 Laboratory 01/25/2014 [facility] TSH (Thyroid 6.53 IU/mL High 0.34-5.60 25 test finding [address] [place] [address] Horm) [phone] Surgical 08/27/2013 [facility] S RUN DATE: Pathology [address] 08/28/ [place] [address] <SEE NOTE> [phone] Pre Cath 08/24/2013 [facility] Activated 30.2 22.18-37.[address] [place] [address] Thrombo Time [phone] Basic 08/24/2013 [facility] Sodium 138 mmol/L 133-[address] [place] [address] [phone] Potassium 4.5 mmol/L 3.5-5.0 Chloride 106 mmol/L 101-111 Co2 Carbon Dioxide 27.0 mmol/L 22-32 Anion Gap 5.0 mmol/L 2-11 Glucose 93 mg/dL 70-100 Blood Urea Nitrogen 19 mg/dL 6-24 Creatinine 0.60 mg/dL 0.50-1.40 BUN/Creatinine Ratio 31.7 High 8-20 Calcium 9.8 mg/dL 8.1-9.9 Egfr Non- 97.2 >60 Egfr 125.0 >60 27 CBC Auto Diff 08/24/2013 [facility] White Blood 6.3 10^3/uL 4.8-10.[address] [place] [address] [phone] Red Blood Count 4.13 10^6/uL 4.0-5.4 Hemoglobin [...] 0-2 Nucleated Red Blood Cells % 0 Inr/Protime 08/24/2013 [facility] Inr 0.82 Low 0.87-0.97 [address] [place] [address] [phone] Basic Metabolic 10/24/2012 [facility] Sodium 140 mmol/L 133- 145 Panel [address] [place] [address] [phone] Potassium 4.4 mmol/L 3.5-5.0 Chloride 105 mmol/L 101-111 Co2 Carbon Dioxide 30.0 mmol/L 22-32 Anion Gap 5.0 mmol/L 2-11 Glucose 91 mg/dL 70-100 Blood Urea Nitrogen 16 mg/dL 6-24 Creatinine 0.70 mg/dL 0.50-1.40 BUN/Creatinine Ratio 22.9 High 8-20 Calcium 9.8 mg/dL 8.1-9.9 Egfr Non- 81.4 >60 Egfr 104.6 >60 28 Comp Metabolic Panel 09/08/2012 [facility] Sodium 139 mmol/L 133-145 [address] [place] [address] [phone] Potassium 5.1 mmol/L High 3.5-5.0 Chloride 108 [...] Egfr 78.3 >60 30 Lipid Profile 09/08/2012 [facility] Triglycerides 58 mg/dL 40 -200 (Trig/Chol/HDL) [address] [place] [address] [phone] Cholesterol 184 mg/dL Less than 200 31 HDL Cholesterol 79 mg/dL High 40-60 32 Cholesterol/HDL Ratio 2.3 AVERAGE 1-4.44 LDL Cholesterol 93.4 mg/dL Less Than 100 Laboratory test 09/08/2012 [facility] Creatine 40 U/L 0-200 [address] [place] [address] [phone] CBC Auto Diff 09/08/2012 [facility] White Blood 4.6 Low 4.8- 10.[address] Count 10^3/[place] [address] [phone] Red Blood Count 4.03 10^6/uL 4.0-5.4 Hemoglobin [...] Nucleated Red Blood Cells % 0 Laboratory test 09/08/2012 [facility] TSH (Thyroid 1.71 0.34- 5.60 [address] Stimulating MIU/[place] [address] Horm) [phone] Lipid Profile 12/13/2010 [facility] Triglyceride 40 mg/dL 40- 200 (Trig/Chol/HDL) [address] [place] [address] [phone] Cholesterol 181 mg/dL Less Than 200 35 High Density Lipoprotein 79 mg/dL High 40-60 36 Cholesterol/HDL Ratio 2.29 AVERAGE 1-4.44 Low Density Lipoprotein 94 mg/dL Less Than 100 37 Comp Metabolic Panel 12/13/2010 [facility] Sodium 134 mmol/L Low 135-145 [address] [place] [address] [phone] Potassium 4.5 mmol/L 3.5-5.0 Chloride 101 mmol/L 101-111 Co2 (Carbon Dioxide) 27.0 mmol/L 22-32 Anion Gap 6.0 mmol/L 2-11 38 Glucose 90 mg/dL 70-100 BUN 21 mg/dL 6-24 Creatinine 0.80 mg/dL 0.50-1.40 One Over Creatinine 1.20 BUN/Creatinine Ratio 26.3 High 8-20 Calcium 9.3 mg/dL 8.1-9.9 Total Protein 5.9 GM/DL Low 6.2-8.1 Albumin 4.0 GM/DL 3.2-5.2 Globulin 1.9 GM/DL Low 2-4 Albumin/Globulin Ratio 2.1 1-3 Bilirubin Total 0.9 mg/dL 0.4-1.5 39 Alkaline Phosphatase 45 U/L 30-110 Alt (SGPT) 16 U/L 14-54 Ast (Sgot) 19 U/L 12-42 eGFR Non- 74.5 > 60 eGFR 90.2 > 60 40 Lipid Panel - 12/13/2010 [facility] CPK (Creatine 40 U/L 0- [address] Kinase) [place] [address] [phone] Laboratory test 04/18/2010 [facility] Thyroxine Free 1.22 0.61-1.[address] NG/[place] [address] [phone] TSH 3.66 MIU/ML 0.34-5.60 Lipid Profile 04/18/2010 [facility] Triglyceride 42 mg/dL 40- 200 (Trig/Chol/HDL) [address] [place] [address] [phone] Cholesterol 159 mg/dL Less Than 200 42 High Density Lipoprotein 67 mg/dL High 40-60 43 Cholesterol/HDL Ratio 2.37 AVERAGE 1-4.44 Low Density Lipoprotein 84 mg/dL Less Than 100 44 Urine Culture & 05/10/2009 [facility] Urine Culture NF1 [address] [place] [address] [phone] Basic Metabolic 04/07/2009 [facility] Sodium 138 mmol/L 135- [address] [place] [address] [phone] Potassium 4.9 mmol/L 3.5-5.0 Chloride 103 mmol/L 101-111 Co2 (Carbon Dioxide) 30.0 mmol/L 22-32 Anion Gap 5.0 mmol/L 2-11 46 Glucose 99 mg/dL 70-100 47 BUN 24 mg/dL 6-24 Creatinine 0.80 mg/dL 0.50-1.40 One Over Creatinine 1.20 BUN/Creatinine Ratio 30.0 High 8-20 Calcium 9.9 mg/dL 8.1-9.9 48 Lipid Profile 04/07/2009 [facility] Triglyceride 60 mg/dL 40- 200 (Trig/Chol/HDL) [address] [place] [address] [phone] Cholesterol 161 mg/dL Less Than 200 49 High Density Lipoprotein 69 mg/dL High 40-60 50 Cholesterol/HDL Ratio 2.33 AVERAGE 1-4.44 Low Density Lipoprotein 80 mg/dL Less Than 100 51 Laboratory test 04/07/2009 [facility] CPK (Creatine 52 U/L 0- [address] Kinase) [place] [address] [phone] Laboratory test 03/24/2009 [facility] TSH 1.72 0.34-5.[address] MIU/[place] [address] [phone] CBC With Manual 03/24/2009 [facility] White Blood 4.6 CUMM Low 4.8-10.[address] [place] [address] [phone] Red Cell Count 4.16 CUMM Low 4.2-5.4 [...] Absolute Neutrophil Count 2.1 RBC Morphology NORMAL Basic Metabolic Panel 03/24/2009 [facility] Sodium 139 mmol/L 135-[address] [place] [address] [phone] Potassium 5.4 mmol/L High 3.5-5.0 Chloride 104 mmol/L 101-111 Co2 (Carbon Dioxide) 29.0 mmol/L 22-32 Anion Gap 6.0 mmol/L 2-11 52 Glucose 97 mg/dL 70-100 53 BUN 15 mg/dL 6-24 Creatinine 0.70 mg/dL 0.50-1.40 One Over Creatinine 1.40 BUN/Creatinine Ratio 21.4 High 8-20 Calcium 10.2 mg/dL High 8.1-9.9 54 Gram Neg Arnaud Sensitivity 08/23/2008 [facility] Ampicillin >=[address] [place] [address] [phone] Amikacin <=2 S Ciprofloxacin <=0.25 S Cefazolin <=4 S Nitrofurantoin 64 I Gentamicin <=1 S Imipenem <=1 S Levofloxacin <=0.25 S Meropenem <=0.25 S Trimeth-Sulfa <=20 S Tigecylcine <=0.5 S Piperacillin/Tazobactam <=4 S Comp Metabolic Panel 08/21/2008 [facility] Sodium 140 mmol/L 135-[address] [place] [address] [phone] Potassium 5.1 mmol/L High 3.5-5.0 Chloride 108 [...] (Sgot) 23 U/L 12-42 Laboratory test 08/21/2008 [facility] TSH 1.48 MIU/ML 0.34- 5.[address] [place] [address] [phone] CBC With Manual 08/21/2008 [facility] White Blood 5.7 CUMM 4.8-10.[address] [place] [address] [phone] Red Cell Count 4.03 CUMM Low 4.2-5.4 [...] Anisocytosis SLIGHT Ovalocytes FEW Laboratory test 08/21/2008 [facility] Urine Culture ESCHERICHIA COLI finding [address] [place] [address] [phone] Laboratory test 07/07/2008 [facility] Urine Culture ESCHERICHIA COLI finding [address] [place] [address] [phone] Gram Neg Arnaud 07/07/2008 [facility] Ampicillin >=32 R Sensitivity [address] [place] [address] [phone] Amikacin <=2 S Ciprofloxacin <=0.25 S Cefazolin <=4 S Nitrofurantoin 64 I Gentamicin <=1 S Imipenem <=1 S Levofloxacin <=0.25 S Meropenem <=0.25 S Trimeth-Sulfa <=20 S Tigecylcine <=0.5 S Piperacillin/Tazobactam <=4 S C. Difficile 06/24/2008 [facility] C. Difficile TEST 58, [address] [place] [address] <SEE NOTE> [phone] CBC With 06/23/2008 [facility] White Blood 7.2 CUMM 4.8- 60 Manual Diff [address] Count 10.8 [place] [address] [phone] Red Cell Count 4.14 CUMM Low 4.2-5.4 [...] Count 5.5 Anisocytosis SLIGHT Lipid Profile 03/05/2008 [facility] Cholesterol/HDL 2.74 1- 4.44 61 (Trig/Chol/HDL) [address] [place] [address] [phone] Cholesterol 178 mg/dL Less Than 200 62 Triglyceride 40 mg/dL 40-200 High Density Lipoprotein 65 mg/dL High 40-60 63 Low Density Lipoprotein 105 mg/dL High Less Than 100 64 Comp Metabolic Panel 03/05/2008 [facility] One Over Creatinine 1.[address] [place] [address] [phone] Anion Gap 8.0 mmol/L 2-11 65 Albumin/Globulin [...] 0.8 mg/dL 0.5-1.4 Lipid Panel - 03/05/2008 [facility] CPK (Creatine 53 U/L 0- [address] Kinase) [place], [place] [address] [phone] Laboratory test 03/05/2008 [facility] Free Thyroxine 1.21 0.61-1.24 [address] [place] NG/[place] [address] [phone] TSH 1.24 MIU/ML 0.34-5.60 1 Because ethnic data is not always readily [...] 15-29 5 Kidney failure <15 (or dialysis) 2 Normal Range 180 to 914 Indeterminate Range 145 to 180 Deficient Range <145 3 FASTING 4 Because ethnic data is [...] 0.03 ng/mL Not supportive of diagnosis of [place] 0.03 - 0.50 ng/mL Indeterminate: suggest serial studies if clinically indicated. Greater than 0.5 ng/mL Consistent with diagnosis of KS 9 >100 to <200 pg/mL: likely compensated [...] 0.03 ng/mL Not supportive of diagnosis of KS 0.03 - 0.50 ng/mL Indeterminate: suggest serial studies if clinically indicated. Greater than 0.5 ng/mL Consistent with diagnosis of KS 13 Acute inflammation: >10.00 14 Reference Range and Interpretation: TnI (ng/mL) Interpretation Less Than 0.03 ng/mL Not supportive of diagnosis of [place] 0.03 - 0.50 ng/mL Indeterminate: suggest serial studies if clinically indicated. Greater than 0.5 ng/mL Consistent with diagnosis of KS 15 Please note: The following may produce [...] 0.03 ng/mL Not supportive of diagnosis of KS 0.03 - 0.50 ng/mL Indeterminate: suggest serial studies if clinically indicated. Greater than 0.5 ng/mL Consistent with diagnosis of [place] 19 CBC and smear reviewed. REVIEWED BY [...] PT IS FASTING 26 RUN DATE: 08/28/13 [facility] LIVE PAGE 1 RUN TIME: [address] [place] [address] Specimen Inquiry Name: LEEANN ESPINOZA : [address]: Jp Ni MD Acct: [id number] Unit: [id number] AGE: 77 Location: OR Re08/27/13 SEX: F Status: REG [facility] SPEC: [id number] LILLIAN: 08/27/13- [facility] DR: Jp Ni MD REQ: [id number] RECD: 08/27/13 STATUS: SOUT _ ORDERED: LEVEL I FINAL DIAGNOSIS Foreign body (medical nurse): windows 7 deployment lead as described below (Gross exam). PRE-OPERATIVE DIAGNOSIS Ventricular tachycardia GROSS DESCRIPTION The specimen is received labeled Leeann Espinoza, Undesignated and consists of a medical nurse that measures 6.0 x 5.0 x 1.5 cm. The device is inscribed with [employer] and the serial number: [id number] and the letters DDE-DDDR. The opposing side has a barcode. Per established hospital medical staff protocol no tissue is submitted for light microscopy. Gross examination only. Signed (signature on file) Leeann Hidalgo MD 03/07 1825 END OF REPORT * ML=Testing performed at Main Lab DEPARTMENT OF PATHOLOGY, [address] [place] [address] Shad Cruz M.D. Director [facility] Permit #[id number] 27 Because ethnic data is not always [...] has been shown to interfere with the Jendrassik-Ben Bolt method for measuring total bilirubin. Samples from [...] 60 MG/DL 33 FASTING 34 FASTING 35 CHOLESTEROL INTERPRETATION: Desirable: Less than 200 MG/DL Borderline-High Risk: 200-239 MG/DL High-Risk: 240 MG/DL and over 36 HDL INTERPRETATION: Undesirable: High Risk: Less than 40 MG/DL Desirable: Low Risk: Greater than 60 MG/DL 37 LDL INTERPRETATION: Low Risk Optimal Level: LDL Less than 100 MG/DL Near or Above Optimal: LDL 100-129 MG/DL Borderline High Risk: LDL 130-159 MG/DL High Risk: LDL 160-189 MG/DL Very High Risk: LDL Greater than 189 MG/DL 38 Anion gap measurement may be of limited value in the presence of any alkalosis, especially in a combined acid base disorder. . 39 A metabolite of Naproxen, O-desmethylnaproxen, has been shown to interfere with the Jendrassik-Ben Bolt method for measuring total bilirubin. Samples from patients who have taken Naproxen have shown spurious elevation in total bilirubin levels. 40 Because ethnic data is not always readily [...] 15-29 5 Kidney failure <15 (or dialysis) 41 PLEASE NOTE NEW REFERENCE RANGES. 42 [...] change was based on recommendations from the [place] [employer]. 48 Please note change in [...] change was based on recommendations from the [place] [employer]. 54 Please note change in reference range effective 08 . 55 Anion gap measurement may be of limited value in the presence of any alkalosis, especially in a combined acid base disorder. . 56 Note change in reference range as of 07/15/08. The change was based on recommendations from the [place] [employer]. 57 Please note change in [...] RANGES. Procedures Date Code Description Status 01/12/2019 02143 Icd Eval Sing,Dual,Multi Lead Remote Recpt Transm Tech Completed Rev Tech S 01/12/2019 12123 Pacemaker Check Remote Up To 90Days Completed Single,Dual,Multiple Lead 10/13/2018 94840 Icd Eval Sing,Dual,Multi Lead Remote Recpt Transm Tech Completed Rev Tech S 10/13/2018 47465 Icd Eval Sing,Dual,Multi Lead Remote Recpt Transm Tech Completed Rev Tech S 10/13/2018 29163 Pacemaker Check Remote Up To 90Days Completed Single,Dual,Multiple Lead 10/13/2018 96456 Pacemaker Check Remote Up To 90Days Completed Single,Dual,Multiple Lead 07/24/2018 08931 Pace Maker Eval W/Iterative Adjment Dual Lead Completed 07/14/2018 85148 Icd Eval Sing,Dual,Multi Lead Remote Recpt Transm Tech Completed Rev Tech S 07/14/2018 92518 Pacemaker Check Remote Up To 90Days Completed Single,Dual,Multiple Lead 06/09/2018 55068 EKG Tracing & Interpretation Completed 03/04/2018 36136 Pace Maker Eval W/Iterative Adjment Dual Lead Completed 03/04/2018 28722 Pace Maker Eval W/Iterative Adjment Dual Lead Completed 12/24/2017 46334 EKG Tracing & Interpretation Completed 12/20/2017 24482 Pace Maker Eval W/Iterative Adjment Dual Lead Completed 12/20/2017 43869 Pace Maker Eval W/Iterative Adjment Dual Lead Completed 12/04/2017 16779 ECHO Transthoracic, Real-Time 2D With Doppler And Completed Color Flow 12/04/2017 25842 ECHO Transthoracic, Real-Time 2D With Doppler And Completed Color Flow 10/02/2017 28491 EKG Tracing & Interpretation Completed 06/25/2017 31799 Pace Maker Eval W/Iterative Adjment Dual Lead Completed 01/08/2017 37393 EKG Tracing & Interpretation Completed 01/04/2017 57987 Pace Maker Eval W/Iterative Adjment Dual Lead Completed 09/25/2016 47045 Icd Check Single,Dual Or Multiple In Person W/DR Incl Completed Heart Rhyth 09/20/2016 97273 ECHO Transthoracic, Real-Time 2D With Doppler And Completed Color Flow 09/19/2016 79970 Icd Eval With Inerative Adjustmt Dual Lead System Completed 09/11/2016 38135 EKG Tracing & Interpretation Completed 08/20/2016 09557 Icd Eval With Inerative Adjustmt Dual Lead System Completed 06/19/2016 54973 Icd Eval With Inerative Adjustmt Dual Lead System Completed 03/26/2016 30183 Icd Eval Sing,Dual,Multi Lead Remote Recpt Transm Tech Completed Rev Tech S 03/26/2016 32358 Icd Check Remote Up To 90 Days Single,Dual,Multiple Completed Lead 01/18/2016 89270 EKG Tracing & Interpretation Completed 12/01/2015 74796 Icd Check Single,Dual Or Multiple In Person W/DR Incl Completed Heart Rhyth 09/02/2015 56707 EKG Tracing & Interpretation Completed 09/02/2015 06814 EKG Tracing & Interpretation Completed 08/21/2015 91011 Icd Eval Sing,Dual,Multi Lead Remote Recpt Transm Tech Completed Rev Tech S 08/21/2015 19437 Icd Check Remote Up To 90 Days Single,Dual,Multiple Completed Lead 04/28/2015 68536 ECHO Transthoracic, Real-Time 2D With Doppler And Completed Color Flow 04/11/2015 25887 EKG Tracing & Interpretation Completed 04/04/2015 86024 Icd Check Single,Dual Or Multiple In Person W/DR Incl Completed Heart Rhyth 11/01/2014 69228 Icd Check Single,Dual Or Multiple In Person W/DR Incl Completed Heart Rhyth 08/17/2014 54070 EKG Tracing & Interpretation Completed 03/05/2014 64626 Icd Check Single,Dual Or Multiple In Person W/DR Incl Completed Heart Rhyth 12/08/2013 44738 Icd Eval With Inerative Adjustmt Dual Lead System Completed 08/27/2013 58590 Ep Eval Icd AT Implant Completed 08/27/2013 21861 Removal Dual Lead Pacing Cardioverter-Defibrillator Completed W/Replacmt 08/12/2013 38862 Icd Check Single,Dual Or Multiple In Person W/DR Incl Completed Heart Rhyth 08/12/2013 32819 Icd Check Single,Dual Or Multiple In Person W/DR Incl Completed Heart Rhyth 07/07/2013 69957 Icd Eval Sing,Dual,Multi Lead Remote Recpt Transm Tech Completed Rev Tech S 07/07/2013 30602 Icd Check Remote Up To 90 Days Single,Dual,Multiple Completed Lead 06/08/2013 19762 Icd Eval Sing,Dual,Multi Lead Remote Recpt Transm Tech Completed Rev Tech S 04/29/2013 21669 EKG Tracing & Interpretation Completed 02/09/2013 59739 Interrogation Device Eval In Person W/DR Completed Analysis,Single,Dual,Mul 02/09/2013 10082 Interrogation Device Eval In Person W/DR Completed Analysis,Single,Dual,Mul 01/13/2013 64994 Icd Check Single,Dual Or Multiple In Person W/DR Incl Completed Heart Rhyth 01/13/2013 30840 Icd Check Single,Dual Or Multiple In Person W/DR Incl Completed Heart Rhyth 12/11/2012 [id number] Bone Mineral Density Test Completed 10/09/2012 91316 Icd Check Single,Dual Or Multiple In Person W/DR Incl Completed Heart Rhyth 09/26/2012 61662 ECHO Transthoracic, Real-Time 2D With Doppler And Completed Color Flow 08/13/2012 91393 Icd Eval Sing,Dual,Multi Lead Remote Recpt Transm Tech Completed Rev Tech S 08/13/2012 28029 Icd Check Remote Up To 90 Days Single,Dual,Multiple Completed Lead 07/10/2012 20799 Icd Check Single,Dual Or Multiple In Person W/DR Incl Completed Heart Rhyth 06/27/2012 72497 EKG Tracing & Interpretation Completed 05/14/2012 44410 Icd Eval Sing,Dual,Multi Lead Remote Recpt Transm Tech Completed Rev Tech S 05/14/2012 11398 Icd Check Remote Up To 90 Days Single,Dual,Multiple Completed Lead 12/13/2011 89482 Icd Check Single,Dual Or Multiple In Person W/DR Incl Completed Heart Rhyth 10/04/2011 75158 Icd Eval Sing,Dual,Multi Lead Remote Recpt Transm Tech Completed Rev Tech S 10/04/2011 86337 Icd Check Remote Up To 90 Days Single,Dual,Multiple Completed Lead 08/15/2011 99442 Icd Check Remote Up To 90 Days Single,Dual,Multiple Completed Lead 08/15/2011 39316 Icd Eval Sing,Dual,Multi Lead Remote Recpt Transm Tech Completed Rev Tech S 06/13/2011 27131 EKG Tracing & Interpretation Completed 05/30/2011 12938 Icd Eval With Inerative Adjustmt Dual Lead System Completed 04/11/2011 21976 Icd Eval Sing,Dual,Multi Lead Remote Recpt Transm Tech Completed Rev Tech S 04/11/2011 12465 Icd Check Remote Up To 90 Days Single,Dual,Multiple Completed Lead 02/07/2011 35867 Icd Eval Sing,Dual,Multi Lead Remote Recpt Transm Tech Completed Rev Tech S 02/07/2011 35648 Icd Check Remote Up To 90 Days Single,Dual,Multiple Completed Lead 12/14/2010 97943 Icd Eval With Inerative Adjustmt Dual Lead System Completed 11/16/2010 [id number] Mammogram Completed 10/02/2010 56989 Icd Eval Sing,Dual,Multi Lead Remote Recpt Transm Tech Completed Rev Tech S 10/02/2010 86646 Icd Check Remote Up To 90 Days Single,Dual,Multiple Completed Lead 08/02/2010 30556 Icd Eval Sing,Dual,Multi Lead Remote Recpt Transm Tech Completed Rev Tech S 08/02/2010 49819 Icd Check Remote Up To 90 Days Single,Dual,Multiple Completed Lead 06/06/2010 37416 Icd Check Single,Dual Or Multiple In Person W/DR Incl Completed Heart Rhyth 04/21/2010 40593 EKG Tracing & Interpretation Completed 04/12/2010 23761 Icd Eval Sing,Dual,Multi Lead Remote Recpt Transm Tech Completed Rev Tech S 04/12/2010 81709 Icd Check Remote Up To 90 Days Single,Dual,Multiple Completed Lead 02/14/2010 [id number] Diabetic Retinal Eye Exam Completed 02/08/2010 96524 Icd Eval Sing,Dual,Multi Lead Remote Recpt Transm Tech Completed Rev Tech S 02/08/2010 19551 Icd Check Remote Up To 90 Days Single,Dual,Multiple Completed Lead 12/15/2009 79838 Icd Check Single,Dual Or Multiple In Person W/DR Incl Completed Heart Rhyth 10/05/2009 70580 Icd Eval Sing,Dual,Multi Lead Remote Recpt Transm Tech Completed Rev Tech S 10/05/2009 36261 Icd Check Remote Up To 90 Days Single,Dual,Multiple Completed Lead 08/24/2009 [id number] Mammogram Completed 08/12/2009 16121 Icd Check Single,Dual Or Multiple In Person W/DR Incl Completed Heart Rhyth 08/10/2009 31119 Icd Eval Sing,Dual,Multi Lead Remote Recpt Transm Tech Completed Rev Tech S 08/10/2009 60180 Icd Check Remote Up To 90 Days Single,Dual,Multiple Completed Lead 06/09/2009 98530 Icd Eval With Inerative Adjustmt Dual Lead System Completed 04/25/2009 92193 ECHO Transthoracic, Real-Time 2D With Doppler And Completed Color Flow 04/13/2009 64743 Icd Eval Sing,Dual,Multi Lead Remote Recpt Transm Tech Completed Rev Tech S 04/13/2009 92137 Icd Check Remote Up To 90 Days Single,Dual,Multiple Completed Lead 02/09/2009 02997 Icd Eval Sing,Dual,Multi Lead Remote Recpt Transm Tech Completed Rev Tech S 02/09/2009 33764 Icd Check Remote Up To 90 Days Single,Dual,Multiple Completed Lead 12/09/2008 55805 Analysis Aicd DC W/Reprogramming Completed 12/09/2008 77845 Icd Eval With Inerative Adjustmt Dual Lead System Completed 12/03/2008 05218 EKG Tracing & Interpretation Completed 11/03/2008 25773 Analysis Aicd DC W/Out Reprogramg Completed 10/06/2008 41451 Analysis Aicd DC W/Out Reprogramg Completed 10/06/2008 23639 Analysis Aicd DC W/Out Reprogramg Completed 10/04/2008 78551 EKG Tracing & Interpretation Completed 10/04/2008 64612 EKG Tracing & Interpretation Completed 09/16/2008 81871 Analysis Aicd DC W/Reprogramming Completed 09/16/2008 02265 Analysis Aicd DC W/Reprogramming Completed 07/28/2008 68758 Analysis Aicd DC W/Reprogramming Completed 07/28/2008 23483 Analysis Aicd DC W/Reprogramming Completed 07/28/2008 11104 Analysis Aicd DC W/Reprogramming Completed 07/14/2008 51874 Analysis Aicd DC W/Out Reprogramg Completed 07/14/2008 85519 Analysis Aicd DC W/Out Reprogramg Completed 05/13/2008 45183 Analysis Aicd DC W/Out Reprogramg Completed 05/11/2008 26171 EKG Tracing & Interpretation Completed 03/10/2008 00340 Analysis Aicd DC W/Out Reprogramg Completed 01/09/2008 91509 Analysis Aicd DC W/Reprogramming Completed 01/09/2008 52936 EKG Tracing & Interpretation Completed 01/09/2008 77691 EKG Tracing & Interpretation Completed 11/19/2007 67766 EKG Tracing & Interpretation Completed 11/19/2007 46557 EKG Tracing & Interpretation Completed 11/13/2007 80417 Analysis Aicd DC W/Reprogramming Completed 11/13/2007 56501 Analysis Aicd DC W/Reprogramming Completed 11/13/2007 87547 Analysis Aicd DC W/Reprogramming Completed 08/15/2007 20952 EKG Tracing & Interpretation Completed 08/15/2007 52166 EKG Tracing & Interpretation Completed 07/25/2007 15163 Analysis Aicd DC W/Reprogramming Completed 06/20/2007 66592 Selective Coronary Angioplasty Completed 06/20/2007 55550 S/I/R Inj Proc Vent And Or Atrial Completed 06/20/2007 06764 S/I/R Inj Proc Vent And Or Atrial Completed 06/20/2007 61042 Coronary Angiography Completed 06/20/2007 06063 Com RT And LT Catheterization Completed 06/20/2007 20628 Inj Proc LFT Vent/LFT Atrl Angio Completed 06/20/2007 01503 Inj Proc LFT Vent/LFT Atrl Angio Completed 06/16/2007 82366 EKG Tracing & Interpretation Completed 06/10/2007 16771 EKG Tracing & Interpretation Completed 06/10/2007 44110 EKG Tracing & Interpretation Completed 06/02/2007 42919 Event Monitor/Phys Review/Interp. Completed 06/02/2007 97269 Cardiac Event Monitor/Recording Completed 06/02/2007 06464 Cardiac Event Monitor/Recording Completed 04/29/2007 75773 Color Flow Doppler/Interp & Reprt Completed 04/29/2007 13843 Echocardiography, Transesophageal, Real Time W/Image Completed 2D W/W/O M-M 04/29/2007 95359 Color Flow Doppler/Interp & Reprt Completed 04/23/2007 55504 Holter Monitor Completed 04/15/2007 09280 Treadmill Interp/Report Only Completed 04/15/2007 40907 Stress Test Supervsn W/Out I/R Completed 04/15/2007 85967 Stress Test Supervsn W/Out I/R Completed 04/14/2007 50245 Pulse Doppler & Continuous Wave Completed 04/14/2007 69190 Echocardiogram Completed 04/14/2007 04737 Echocardiogram Completed 04/14/2007 57568 Color Doppler Completed 04/14/2007 97096 Color Doppler Completed 04/11/2007 41949 ECHO/Stress Completed 04/11/2007 37747 Stress Test Completed 04/11/2007 81311 Stress Test Completed 10/05/2004 33155 Holter Monitor Completed 10/03/2004 60660 ECHO/Stress Completed 10/03/2004 88080 Stress Test Completed Encounters Type Date Location Provider Dx Diagnosis Office Visit 06/09/2018 [facility] Jayden Tee49.5 Sick sinus 11:20a [place] Mann syndrome I42.9 Cardiomyopathy, unspecified I34.0 Nonrheumatic mitral (valve) insufficiency I47.2 Ventricular tachycardia Office Visit 12/24/2017 [place] Jayden Ceron I42.9 Cardiomyopathy, 10:40a Cardiology Mora Mann unspecified I48.3 Typical atrial flutter I34.0 Nonrheumatic mitral (valve) insufficiency I47.2 Ventricular tachycardia I49.5 Sick sinus syndrome R94.31 Abnormal electrocardiogram [ECG] [EKG] Office Visit 11/01/2017 1:45p [facility] Fausto Fung.Harsh1 [facility] [place], right C.M.A. leg Office Visit 10/02/2017 1:10p [place] Tee49.Shanika Sick sinus Cardiology Mora Mann syndrome I42.9 Cardiomyopathy, unspecified Z95.0 Presence of cardiac pacemaker I48.3 Typical atrial flutter R06.00 Dyspnea, unspecified I34.0 Nonrheumatic mitral (valve) insufficiency I47.2 Ventricular tachycardia R07.89 Other chest pain Office Visit 07/05/2017 10:15a [facility] Fausto Fung.Harsh1 [facility] [place], right C.M.A. leg Office Visit 05/03/2017 2:00p [facility] Fausto Fung.821 [facility] [place], right C.M.A. leg Office Visit 01/08/2017 2:20p [place] Jayden F. I49.5 Sick sinus Cardiology Mora Mann syndrome I48.3 Typical atrial flutter I42.9 Cardiomyopathy, unspecified Office Visit 09/11/2016 1:20p [facility] Jayden Ceron I49.5 Sick sinus Mora Mann syndrome Z95.810 Presence of automatic (implantable) cardiac defibrillator I48.3 Typical atrial flutter Office Visit 02/08/2016 [facility] Fausto M76.821 Posterior tibial 2:20p [facility] [place] [place] tendinitis, right C.M.A. leg Office Visit 01/18/2016 [place] Jayden Ceron Z95.810 Presence of 1:40p Cardiology Mora Mann automatic (implantable) cardiac defibrillator I48.3 Typical atrial flutter I42.9 Cardiomyopathy, unspecified I49.5 Sick sinus syndrome I34.0 Nonrheumatic mitral (valve) insufficiency Office Visit 09/02/2015 10:30a Kimmy Underwood I42.9 Cardiomyopathy, [facility] [place] unspecified Coffee Machine Technician I48.3 Typical atrial flutter I49.5 Sick sinus syndrome Z95.810 Presence of automatic (implantable) cardiac defibrillator Office Visit 04/11/2015 [place] 425.9 Cardiomyopathy 10:40a Cardiology Mora Mann Secondary Unspecified 427.1 Paroxysmal Ventricular Tachycardia 427.81 Sinoatrial Node Dysfunction Office Visit 08/17/2014 3:40p [place] Duarte Ceron 427.1 Joey Mann M.D. Ventricular Tachycardia V45.02 Cardiac Defibrillator Automatic Implantable Postsurgical 427.81 Sinoatrial Node Dysfunction 424.0 Mitral Valve Disorder 425.9 Cardiomyopathy Secondary Unspecified Office Visit 08/21/2013 3:00p Kimmy Reardon 425.9 Cardiomyopathy Cardiology Sunny Ni M.D. Secondary Coffee Machine Technician Unspecified V45.02 Cardiac Defibrillator Automatic Implantable Postsurgical 427.1 Paroxysmal Ventricular Tachycardia Office Visit 04/29/2013 10:00a [place] Duarte Ceron 424.0 Mitral Valve Mora Mann Disorder V45.02 Cardiac Defibrillator Automatic Implantable Postsurgical 427.81 Sinoatrial Node Dysfunction 425.9 Cardiomyopathy Secondary Unspecified Office Visit 06/27/2012 9:50a [facility] Jayden Ceron 427.81 Sinoatrial Node Mora Mann Dysfunction V45.02 Cardiac Defibrillator Automatic Implantable Postsurgical 427.1 Paroxysmal Ventricular Tachycardia Office Visit 06/13/2011 9:40a [facility] Jayden Ceron 427.1 Paroxysmal Mora Mann Ventricular Tachycardia V45.02 Cardiac Defibrillator Automatic Implantable Postsurgical 424.0 Mitral Valve Disorder Office Visit 09/07/2010 10:40a DO Not Use Coffee Machine Technician AT Arvin Reardon 088.81 Lyme Disease Raul Lambert M.D.,FACP 784.92 Jaw Pain 232.3 Carcinoma Skin Face Unspec Office Visit 04/21/2010 11:20a [facility] Jayden Ceron 427.1 Joey Mann M.D. Ventricular Tachycardia V45.02 Cardiac Defibrillator Automatic Implantable Postsurgical 244.8 Hypothyroidism Other Spec 424.0 Mitral Valve Disorder Office Visit 02/23/2010 DO Not Use Coffee Machine Technician Arvin Reardon V72.81 Examination 10:40a AT Raul Lambert M.D.,[facility] Preoperative Cardiovascular 366.04 Cataract Nuclear 244.8 Hypothyroidism Other Spec 715.04 Osteoarthrosis Generalized Hand Office Visit 08/11/2009 10:00a DO Not Use Coffee Machine Technician Arvin Reardon 427.1 Paroxysmal AT Raul Lambert M.D.,FAC Ventricular Tachycardia 244.8 Hypothyroidism Other Spec 380.4 Impacted Cerumen V76.10 Screening For Malignant Neoplasm Breast Office Visit 07/14/2009 1:40p DO Not Use Coffee Machine Technician Shannon, 380.4 Impacted Cerumen AT Raul Lawrence M.D. Office Visit 05/10/2009 11:40a DO Not Use Coffee Machine Technician Arvin Lambert, 599.0 UTI Urinary AT Raul Velazco,[facility] Tract Infection Site Not Spec 389.10 Hearing Loss Sensorineural Unspec Office Visit 03/16/2009 11:00a [facility] Jayden Ceron 427.1 Paroxysmal Mora Mann Ventricular Tachycardia V45.02 Cardiac Defibrillator Automatic Implantable Postsurgical 386.19 Vertigo Aural & Otogenic Other 427.81 Sinoatrial Node Dysfunction Office Visit 12/17/2008 3:40p DO Not Use Coffee Machine Technician Arvin Reardon 386.19 Vertigo Aural & AT Raul Lambert M.D.,[facility] Otogenic Other Office Visit 12/09/2008 2:20p [place] Remote Device 427.1 Paroxysmal Cardiology Checks Ventricular Tachycardia V45.02 Cardiac Defibrillator Automatic Implantable Postsurgical 427.81 Sinoatrial Node Dysfunction 780.4 Dizziness & Giddiness Office Visit 12/03/2008 2:00p [facility] Jayden Ceron 427.1 Paroxysmal Mora Mann Ventricular Tachycardia V45.02 Cardiac Defibrillator Automatic Implantable Postsurgical 427.81 Sinoatrial Node Dysfunction 780.4 Dizziness & Giddiness Office Visit 10/04/2008 1:20p [facility] Jayden Ceron 427.1 Paroxysmal Mora Mann Ventricular Tachycardia V45.02 Cardiac Defibrillator Automatic Implantable Postsurgical 427.81 Sinoatrial Node Dysfunction 786.50 Pain Chest Unspec Office Visit 08/09/2008 11:30a DO Not Use Coffee Machine Technician Matty 461.1 Sinusitis Acute AT Raul Porter M.D. [facility] 788.41 Urinary Frequency Office Visit 06/23/2008 11:30a DO Not Use Coffee Machine Technician AT Charlotte Starr, 787.91 Diarrhea [facility] Mora 786.50 Pain Chest Unspec Office Visit 06/10/2008 11:20a DO Not Use Coffee Machine Technician Arvin Reardon 461.1 Sinusitis Acute AT Raul Lambert M.D.,[facility] Office Visit 05/26/2008 9:30a DO Not Use Coffee Machine Technician Dionne Ford P 454.9 Varicose Veins AT [facility] A Lower Extrem Asymptomatic Varicose Veins Office Visit 05/11/2008 2:20p [place] Ceron 427.1 Paroxysmal Cardiology Mora Mann Ventricular Tachycardia V45.02 Cardiac Defibrillator Automatic Implantable Postsurgical 424.0 Mitral Valve Disorder Office Visit 03/18/2008 10:00a DO Not Use Coffee Machine Technician Dionne Ford PA 477.9 Rhinitis AT [facility] Allergic Cause Unspec 427.1 Paroxysmal Ventricular Tachycardia 244.9 Hypothyroidism Other Unspec 272.2 Hyperlipidemia Mixed V45.02 Cardiac Defibrillator Automatic Implantable Postsurgical V45.01 Cardiac Pacemaker In Situ Postsurgical Office Visit 02/25/2008 10:20a DO Not Use Coffee Machine Technician Arvin Reardon 427.1 Paroxysmal AT Raul Lambert M.D.,FACP Ventricular Tachycardia 733.90 Bone & Cartilage Disorder Unspec 244.9 Hypothyroidism Other Unspec 272.2 Hyperlipidemia Mixed Office Visit 01/09/2008 3:20p [facility] Jayden Ceron 427.1 Paroxysmal Mauser, M.D. Ventricular Tachycardia 427.81 Sinoatrial Node Dysfunction 424.0 Mitral Valve Disorder 786.09 Dyspnea & Respiratory Abnormalities Other 780.4 Dizziness & Giddiness V45.02 Cardiac Defibrillator Automatic Implantable Postsurgical Office Visit 11/19/2007 2:40p [facility] Jayden Ceron 427.1 Paroxysmal Mauser, M.D. Ventricular Tachycardia 427.81 Sinoatrial Node Dysfunction V45.02 Cardiac Defibrillator Automatic Implantable Postsurgical 424.0 Mitral Valve Disorder Office Visit 09/25/2007 9:00a [facility] Jayden Ceron 427.1 Paroxysmal Masamr M.D. Ventricular Tachycardia 427.81 Sinoatrial Node Dysfunction 424.0 Mitral Valve Disorder V45.01 Cardiac Pacemaker In Situ Postsurgical Office Visit 08/15/2007 10:20a [facility] Jayden Ceron 427.1 Paroxysmal Cedr MMarielD. Ventricular Tachycardia 785.0 Tachycardia Unspec 427.81 Sinoatrial Node Dysfunction 424.0 Mitral Valve Disorder Office Visit 07/25/2007 9:20a [facility] Jayden Ceron 785.0 Tachycardia Mackenzie MMarielDMariel Unspec 427.1 Paroxysmal Ventricular Tachycardia 427.81 Sinoatrial Node Dysfunction 440.0 Atherosclerosis Aorta V45.01 Cardiac Pacemaker In Situ Postsurgical Office Visit 06/27/2007 2:00p [facility] Jayden Ceron 785.0 Tachycardia Mora Mann Unspec 427.1 Paroxysmal Ventricular Tachycardia Office Visit 06/16/2007 2:00p [facility] Jayden Ceron 785.0 Tachycardia Harmanuser M.D. Unspec 424.0 Mitral Valve Disorder 785.1 Palpitations Office Visit 06/10/2007 [place] Kumar Cotton 427.81 Sinoatrial Node 10:20a Cardiology Mora Lubin Dysfunction 424.0 Mitral Valve Disorder 794.31 Electrocardiogram (ECG) (EKG) Abnormal 785.0 Tachycardia Unspec Office Visit 06/02/2007 11:00a [facility] Jayden Ceron 427.81 Sinoatrial Node Mora Mann Dysfunction 424.0 Mitral Valve Disorder 440.0 Atherosclerosis Aorta Office Visit 04/11/2007 8:30a [facility] Jayden Ceron 427.81 Sinoatrial Node Mora Mann Dysfunction 786.50 Pain Chest Unspec 786.09 Dyspnea & Respiratory Abnormalities Other 424.0 Mitral Valve Disorder Plan of Treatment Future Appointment(s):04/13/2019 6:20 am - Remote Device Checks at [facility]06/09/2018 - Jayden Mann M.D.I49.5 Sick sinus syndromeFollow up:ov 10 mI42.9 Cardiomyopathy, [id number] Nonrheumatic mitral (valve) [id number] Ventricular tachycardia
[2019-01-15 23:37] LABS: Albumin 4.1 g/dL (3.2-5.2); Albumin/Globulin Ratio 1.7 (1-3); BUN/Creatinine Ratio 20.7 (8-20); Calcium 10.4 mg/dL (8.6-10.3); EGFR African American 51.5 (>60); EGFR Non-African American 42.6 (>60); Globulin 2.4 g/dL (2-4); Total Bilirubin 0.3 mg/dL (0.2-1.0); Total Protein 6.5 g/dL (6.4-8.9)
[2019-01-16 00:01] LABS: Potassium 4.7 mmol/L (3.5-5.0)
[2019-01-16 05:06] VITALS: BP 114/58
== END 2019-01-16 06:01 | disposition home or self-care (01) ==
LOC: ED 22:40
DX: R07.89 Other chest pain (principal); R42 Dizziness and giddiness; H53.9 Unspecified visual disturbance; I47.2 Ventricular tachycardia; R00.1 Bradycardia, unspecified; Z95.810 Presence of automatic (implantable) cardiac defibrillator; Z88.2 Allergy status to sulfonamides; Z91.048 Other nonmedicinal substance allergy status; Z87.891 Personal history of nicotine dependence
CPT/HCPCS: 36415; 71046; 80053; 83605; 84484; 85025; 93005; 99284